=== PATIENT | female | born 1955 | race African-American/Black ===

== ENCOUNTER 2020-09-14 09:14 | Outpatient (REF) | payer OTHER, SELFPAY ==
--- NOTE | 2020-09-14 09:16 | XR_ITS ---
EXAMINATION: XR SHOULDER, RIGHT CLINICAL INFORMATION: Right shoulder pain. COMPARISON: 01/06/2020, 01/13/2019, and 10/04/2018. TECHNIQUE: Three views of the right shoulder. FINDINGS: There is no evidence of acute fracture, dislocation, or calcific tendinitis of the right shoulder. Glenohumeral joint space appears maintained. There is mild spurring about the glenohumeral joint as well some degenerative spurring with subchondral cyst formation about the right acromioclavicular joint. There are also noted to be pit erosions/subchondral cysts seen about the right humeral head. XR/XR shoulder RT min 2V IMPRESSION: Degenerative change of the right shoulder without evidence of acute fracture, dislocation, or calcific tendinitis. Stable appearance.
== END 2020-09-14 09:15 | disposition home or self-care (01) ==
LOC: HO.HOSX 09:14
PROVIDERS: PCP Family Medicine Geriatric Medicine; Referring Provider Family Medicine Geriatric Medicine; Visit Provider Orthopaedic Surgery
DX: M75.41 Impingement syndrome of right shoulder (principal); I10 Essential (primary) hypertension; E11.9 Type 2 diabetes mellitus without complications; F17.200 Nicotine dependence, unspecified, uncomplicated
CPT/HCPCS: 20610; 73030; 99212; J1040

== ENCOUNTER 2020-10-28 14:00 | Outpatient (RCR) | payer OTHER, SELFPAY | END 2020-11-21 16:30 | disposition other institution (70) | LOC: HO.PT 14:00 | PROVIDERS: PCP Internal Medicine; Visit Provider Internal Medicine | DX: M25.511 Pain in right shoulder (principal); M25.512 Pain in left shoulder | CPT/HCPCS: 97110; 97161 ==

== ENCOUNTER 2020-11-15 08:49 | Outpatient (REF) | payer OTHER, SELFPAY ==
--- NOTE | 2020-11-15 08:58 | MM_ITS ---
EXAMINATION: MM SCREENING DIGITAL BREAST TOMOSYNTHESIS, BILATERAL CLINICAL INFORMATION: Screening. Asymptomatic. The lifetime risk of breast cancer based on the Tyrer-Cuzick Model is 5%. COMPARISON: Mammography: 10/07/2019, 09/01/2018, 08/30/2017, 08/15/2016 TECHNIQUE: Digital breast tomosynthesis is performed in both the craniocaudal and mediolateral oblique views along with computer-aided detection (CAD). Synthesized 2D images are generated from the tomosynthesis. FINDINGS: There are scattered areas of fibroglandular density (ACR BI-RADS breast composition Category b). Parenchymal pattern is similar to prior exams. There is no significant mass or interval architectural abnormality or abnormal calcifications. Small asymmetric density central outer left breast on CC view and asymmetry upper outer quadrant right breast are stable. There is a chronic smooth mass central 3:00 right breast again seen. No significant changes. MM/MM tomosynthesis screening BI IMPRESSION: No significant changes from prior studies. ASSESSMENT: BI-RADS 2: Benign RECOMMENDATION: Routine annual mammography screening. This patient's information was entered into a reminder system with a target due date for their next mammogram.
== END 2020-11-15 08:50 | disposition home or self-care (01) ==
LOC: HO.MAMMO 08:49
PROVIDERS: PCP Internal Medicine; Visit Provider Internal Medicine
DX: Z12.31 Encounter for screening mammogram for malignant neoplasm of breast (principal)
CPT/HCPCS: 77063; 77067

== ENCOUNTER 2020-12-29 14:33 | Outpatient (REF) | payer OTHER, SELFPAY | END 2020-12-29 14:34 | disposition home or self-care (01) | LOC: HO.LAB 14:33 | PROVIDERS: Visit Provider Internal Medicine | DX: Z20.822 Contact with and (suspected) exposure to COVID-19 (principal) | CPT/HCPCS: 36415; C9803; U0003; U0005 ==

== ENCOUNTER 2021-02-25 07:06 | Emergency (ER) | payer OTHER, SELFPAY ==
--- NOTE | ~2021-02-25 | XR_ITS ---
EXAMINATION: XR LUMBOSACRAL SPINE CLINICAL INFORMATION: Pain after fall. COMPARISON: 06/03/15. TECHNIQUE: Three views of the lumbosacral spine. FINDINGS: Moderate degenerative changes are present at L4-5 and L5-S1 with disc space narrowing and marginal osteophytosis. There is associated facet arthropathy. There is a mild convex left lower lumbar curve unchanged from previous. Alignment is otherwise unremarkable. Mild degenerative changes and spondylosis are seen in the lower thoracic and upper lumbar spine with marginal osteophytosis. Disc spaces at those levels are reasonably well-maintained. No fracture or other acute abnormality is demonstrated. Alignment the sacroiliac joints is normal. The paravertebral soft tissues are unremarkable. XR/XR lumbar spine 2-3V IMPRESSION: Multilevel degenerative disease without significant interval change. No acute abnormality demonstrated.
[2021-02-25 07:11] VITALS: BP 145/76; PULSE 86; RESP 18; TEMP 37.3; O2SAT 98; BMI 29.8
--- NOTE | 2021-02-25 07:50 | ED.BACK ---
HPI - Back Pain/Injury General Chief Complaint: Back Pain/Injury Stated Complaint: BACK PAIN Time Seen by Provider: 02/25/21 07:34 Source: patient Mode of arrival: ambulatory Limitations: no limitations History of Present Illness HPI Narrative: 65 yo female with HTN, DORA, prior back pain just seen by doctor prescribed flexeril with little effect, HPL, GERD here with back pain for 1 month after fall c/o low back radiating up into her shoulders has not had xrays yet, denies b/b incontinence, no saddle anesthesia MD elicited complaint: back pain and back injury Pertinent past history: prior back pain Onset (ago): month(s) (1) Timing: constant Severity: moderate Similar Symptoms Previously: Yes Quality: spasming and throbbing Location: lumbar spine Radiation: neck Exacerbating factors: movement Relieving factors: none Context: fall Associated symptoms: denies other symptoms Treatments prior to arrival: other medications Work related injury: No Related Data Home Medications Medication Instructions Recorded Confirmed amlodipine 10 mg tablet 10 mg PO DAILY 10/18/20 10/18/20 aspirin 81 mg tablet,delayed 81 mg PO QAM 10/18/20 10/18/20 release baclofen 10 mg tablet 10 mg PO DAILY 10/18/20 10/18/20 citalopram 20 mg tablet 20 mg PO BEDTIME 10/18/20 10/18/20 docusate sodium 100 mg capsule 100 mg PO BID 10/18/20 10/18/20 fluticasone furoate 50 INHALATION 10/18/20 10/18/20 mcg/actuation blister powder for inhalation hydroxyzine HCl 25 mg tablet 25 mg PO TID PRN 10/18/20 10/18/20 lancets 33 gauge #100 ea 10/18/20 10/18/20 meloxicam 7.5 mg tablet 7.5 mg PO BID 10/18/20 10/18/20 multivitamin 1 tab PO QAM 10/18/20 10/18/20 omega-3 fatty acids-fish oil 340 1 cap PO BID 10/18/20 10/18/20 mg-1,000 mg capsule omeprazole 20 mg capsule,delayed 20 mg PO QAM 10/18/20 10/18/20 release paroxetine HCl 10 mg tablet 10 mg PO DAILY 10/18/20 10/18/20 rosuvastatin 20 mg tablet 20 mg PO BEDTIME 10/18/20 10/18/20 trazodone 300 mg tablet 300 mg PO BEDTIME 10/18/20 10/18/20 valsartan 320 mg tablet 320 mg PO DAILY 10/18/20 10/18/20 Previous Rx's Medication Instructions Recorded hydrocodone-acetaminophen 1 tab PO Q6H PRN #12 tab 02/25/21 lidocaine 1 patch TOPICAL DAILY PRN #10 ea 02/25/21 Allergies Allergy/AdvReac Type Severity Reaction Status Date / Time hydrochlorothiazide Allergy Unknown swelling, Verified 09/14/20 09:33 water retention penicillin V Allergy Unknown swelling Verified 09/14/20 09:33 Penicillins Allergy Unknown RASH,SWELLI Verified 09/14/20 09:33 NG Review of Systems Review of Systems: Constitutional : No Weight loss, No Fever, No Chills, ENT/Mouth : No Hearing loss, No Ear Pain, No Nasal Congestion, No Sinus Pain, No Hoarseness, No sore throat, No Rhinorrhea, No Swallowing Difficulty Cardiovascular : No Chest Pain, No SOB Respiratory : No Cough, No Dyspnea Gastrointestinal : No Nausea, No Vomiting, No Diarrhea, No abdominal Pain, No Hematochezia, No Melena Genitourinary : No Dysuria, No Urinary Frequency, No Hematuria, No Urinary Incontinence, Musculoskeletal : positive back pain Skin : No Skin Lesions, No rash Neuro : No Weakness, No Numbness, No Paresthesias, no loss of bowel or bladder incontinence, no saddle anesthesia PMFSH Past Medical History Attestation statement: The following information was validated with the patient. Medical History Asthma Hypertension Rotator cuff impingement syndrome of right shoulder Type 2 diabetes mellitus Unilateral primary osteoarthritis, left knee Surgical History History of carpal tunnel release History of hernia repair Family History Family History Mother No problems noted. Father No problems noted. Social History Social History Alcohol intake: never Smoking Status: Current every day smoker Use of substances other than those prescribed or required for medical reasons: No Advance Directives: Yes Advance Directives Information Provided: Yes Advance Directives on File: No Current occupational status: disabled Current occupation: Right Handed Physical Exam Vital Signs: Vital Signs: Last Vital Signs Temp 99.2 F 02/25/21 07:11 Pulse 86 02/25/21 07:11 Resp 18 02/25/21 07:11 BP 145/76 H 02/25/21 07:11 Pulse Ox 98 02/25/21 07:11 Body Mass Index 29.8 Appearance: Alert. Oriented X3. No acute distress. Eyes: Pupils equal, round and reactive to light. ENT: Pharynx normal. Neck: Normal inspection. Neck supple. CVS: Normal heart rate and rhythm. Pulses normal. Respiratory: No respiratory distress. Breath sounds normal. Abdomen: Soft and nontender. Back: ttp along lower lumbar spine and paraspinal muscles Skin: Skin warm and dry. Normal skin color. Normal skin turgor. Extremities: No lower extremity edema. No calf ttp Neuro: Oriented X 3. No motor deficit. No sensory deficit. SILT inner thigh, slow steady gait Course Course Course Narrative: no acute findings on lumbar film at this time, stable for DC MDM - Back Pain/Injury MDM Narrative Medical decision making narrative: 65 yo female with HTN, HPL, DORA here with lower back pain x 1 month after fall, no b/b incontinence, no saddle anesthesia, no IVDA, no AC therapy - at this time will provide PO pain medications, obtain lumbar spine film for compression fractures. Discharge Plan Discharge Clinical Impression: Strain of lumbar region Patient Disposition: Home, Self-Care Instructions: Back Pain (ED) Additional Instructions: return to ED for any worsening symptoms or concerns Prescriptions: New lidocaine 4 % adhesive patch,medicated 1 patch topical DAILY PRN (Reason: pain) Qty: 10 RF: 0 hydrocodone-acetaminophen 5-325 mg tablet 1 tab PO Q6H PRN (Reason: pain) Qty: 12 RF: 0 No Action trazodone 300 mg tablet 300 mg PO BEDTIME RF: 0 (DME) lancets 33 gauge misc See Rx Instructions ea .ROUTE .MEDSUPPLY Qty: 100 RF: 0 Fish Oil 340-1,000 mg capsule 1 cap PO BID RF: 0 rosuvastatin 20 mg tablet 20 mg PO BEDTIME RF: 0 docusate sodium 100 mg capsule 100 mg PO BID RF: 0 citalopram 20 mg tablet 20 mg PO BEDTIME RF: 0 aspirin 81 mg tablet,delayed release (DR/EC) 81 mg PO QAM RF: 0 amlodipine 10 mg tablet 10 mg PO DAILY RF: 0 hydroxyzine HCl 25 mg tablet 25 mg PO TID PRN (Reason: anxiety) RF: 0 meloxicam 7.5 mg tablet 7.5 mg PO BID RF: 0 omeprazole 20 mg capsule,delayed release(DR/EC) 20 mg PO QAM RF: 0 multivitamin Tablet 1 tab PO QAM RF: 0 baclofen 10 mg tablet 10 mg PO DAILY RF: 0 valsartan 320 mg tablet 320 mg PO DAILY RF: 0 paroxetine HCl [Paxil] 10 mg tablet 10 mg PO DAILY RF: 0 fluticasone furoate 50 mcg/actuation blister with device inhalation RF: 0 Referrals: Physician,Unknown [Primary Care Provider] - 2 days (if not better, possible physical therapy referral ) Print Language: Azerbaijani
[2021-02-25] MEDS: HYDROcodone Bit/Acetam 5/325 TABLET 1 TAB PO (08:36)
== END 2021-02-25 09:04 | disposition home or self-care (01) ==
PROVIDERS: Emergency Provider Emergency Medicine
DX: S39.012A Strain of muscle, fascia and tendon of lower back, initial encounter (principal); X58.XXXA Exposure to other specified factors, initial encounter; I10 Essential (primary) hypertension; E11.9 Type 2 diabetes mellitus without complications; K21.9 Gastro-esophageal reflux disease without esophagitis; F17.200 Nicotine dependence, unspecified, uncomplicated; Z79.82 Long term (current) use of aspirin; Z79.899 Other long term (current) drug therapy; Y93.9 Activity, unspecified; Y92.9 Unspecified place or not applicable; Y99.9 Unspecified external cause status
CPT/HCPCS: 72100; 99283; 99284

== ENCOUNTER 2021-05-29 09:44 | Outpatient (REF) | payer OTHER, SELFPAY ==
--- NOTE | ~2021-05-29 | XR_ITS ---
EXAMINATION: XR LUMBOSACRAL SPINE WITH OBLIQUES CLINICAL INFORMATION: Lower back pain. COMPARISON: Most recent lumbar spine radiographs dated 02/25/2021 TECHNIQUE: AP, lateral, coned-down, and bilateral oblique views of the lumbar spine. FINDINGS: Mild dextrocurvature of the lumbar spine, unchanged. The lumbar lordosis is maintained. No acute fracture or subluxation. No loss of vertebral body height. Multilevel loss of intervertebral disc height with endplate osteophytes. Bilateral facet arthropathy throughout the lumbar spine, most prominent at L5-S1. Overall, findings are similar when compared to the prior radiographs. XR/XR lumbar spine 4V min IMPRESSION: Prominent multilevel degenerative disc disease and bilateral facet arthropathy, similar when compared to the prior radiographs.
== END 2021-05-29 09:45 | disposition home or self-care (01) ==
LOC: HO.XRAY 09:44
PROVIDERS: PCP Internal Medicine; Visit Provider Family Medicine
DX: M54.5 Low back pain (principal)
CPT/HCPCS: 72110

== ENCOUNTER 2022-05-13 08:07 | Emergency (ER) | payer OTHER, SELFPAY ==
--- NOTE | ~2022-05-13 | XR_ITS ---
EXAMINATION: XR ANKLE, LEFT CLINICAL INFORMATION: Left ankle pain. COMPARISON: None TECHNIQUE: AP, lateral, and mortise views of the left ankle. FINDINGS: The ankle joint and mortise are intact. There is no acute fracture dislocation. The tarsal bones are normally aligned. Small plantar and retrocalcaneal spurs are seen. Mild to moderate soft tissue swelling is seen more pronounced medially. XR/XR ankle LT 2V IMPRESSION: 1. Mild to moderate soft tissue swelling, more pronounced medially without acute underlying osseous abnormality. 2. Small degenerative calcaneal spurs.
[2022-05-13 08:38] VITALS: BP 136/84; PULSE 90; RESP 18; TEMP 37.2; O2SAT 98; BMI 29.7
--- NOTE | 2022-05-13 10:27 | ED_ITS ---
HPI - Extremity Injury (Lower) General Chief Complaint: Extremity Injury, Lower Stated Complaint: L ankle pain Time Seen by Provider: 05/13/22 10:27 History of Present Illness HPI Narrative: Patient complains of left ankle pain after twisting it several days ago, she did not fall she has no other injuries she has no numbness weakness or tingling Related Data Home Medications Medication Instructions Recorded Confirmed amlodipine 10 mg tablet 10 mg PO DAILY 10/18/20 10/18/20 aspirin 81 mg tablet,delayed 81 mg PO QAM 10/18/20 10/18/20 release baclofen 10 mg tablet 10 mg PO DAILY 10/18/20 10/18/20 citalopram 20 mg tablet 20 mg PO BEDTIME 10/18/20 10/18/20 docusate sodium 100 mg capsule 100 mg PO BID 10/18/20 10/18/20 fluticasone furoate 50 inhalation 10/18/20 10/18/20 mcg/actuation blister powder for inhalation hydroxyzine HCl 25 mg tablet 25 mg PO TID PRN anxiety 10/18/20 10/18/20 lancets 33 gauge #100 ea 10/18/20 10/18/20 meloxicam 7.5 mg tablet 7.5 mg PO BID 10/18/20 10/18/20 multivitamin 1 tab PO QAM 10/18/20 10/18/20 omega-3 fatty acids-fish oil 340 1 cap PO BID 10/18/20 10/18/20 mg-1,000 mg capsule omeprazole 20 mg capsule,delayed 20 mg PO QAM 10/18/20 10/18/20 release paroxetine HCl 10 mg tablet (Paxil) 10 mg PO DAILY 10/18/20 10/18/20 rosuvastatin 20 mg tablet 20 mg PO BEDTIME 10/18/20 10/18/20 trazodone 300 mg tablet 300 mg PO BEDTIME 10/18/20 10/18/20 valsartan 320 mg tablet 320 mg PO DAILY 10/18/20 10/18/20 Previous Rx's Medication Instructions Recorded hydrocodone 5 mg-acetaminophen 325 1 tab PO Q6H PRN pain #12 tabs 02/25/21 mg tablet lidocaine 4 % topical patch 1 patch topical DAILY PRN pain #10 02/25/21 ea cane #1 ea 07/03/22 Allergies Allergy/AdvReac Type Severity Reaction Status Date / Time hydrochlorothiazide Allergy Unknown swelling, Verified 09/14/20 09:33 water retention penicillin V Allergy Unknown swelling Verified 09/14/20 09:33 Penicillins Allergy Unknown RASH,SWELLI Verified 09/14/20 09:33 NG Review of Systems Review of Systems: Positive for left ankle pain and swelling Negatives are no head injury no neck pain no back pain no numbness weakness or tingling no other extremity pains no lacerations Yes all other systems are reviewed and are negative FORMERLY [facility], [facility]1983 Past Medical History Source: nursing notes reviewed Medical History Asthma Hypertension Rotator cuff impingement syndrome of right shoulder Type 2 diabetes mellitus Unilateral primary osteoarthritis, left knee Surgical History History of carpal tunnel release History of hernia repair Family History Family History Mother No problems noted. Father No problems noted. Social History Social History Alcohol intake: never Advance Directives: No Advance Directives Information Provided: No Current occupational status: disabled Current occupation: Right Handed Physical Exam Vital Signs: Vital Signs: Last Vital Signs Temp 98.9 F 05/13/22 08:38 Pulse 90 05/13/22 08:38 Resp 18 05/13/22 08:38 BP 136/84 05/13/22 08:38 Pulse Ox 98 05/13/22 08:38 O2 Del Method 05/13/22 08:38 BMI result Body Mass Index 29.7 General appearance is no acute distress Head is normocephalic atraumatic Neck is supple nontender Respiratory no distress Extremities full range of motion x4 including left ankle which had medial swelling and tenderness, patient is able to walk with a limp, there is no redness no warmth, skin is intact and normal, neurovascular intact Course Course Course Narrative: X-ray was negative, no broken bone and patient is diagnosed with left ankle sprain, she can bear weight but with a limp Discharge Plan Discharge Clinical Impression: Left ankle sprain Patient Disposition: Home, Self-Care Additional Instructions: X-ray did not show any broken bone, so you have an ankle sprain Usually this improves in several weeks without much treatment but if needed go to orthopedist for follow-up Return any time if worse You can use Tylenol as needed for discomfort, elevate the leg apply ice Prescriptions: New (DME) cane Device See Rx Instructions .Route Qty: 1 0RF Rx Instructions: As directed No Action lidocaine 4 % adhesive patch,medicated 1 patch topical DAILY PRN (Reason: pain) Qty: 10 0RF Rx Instructions: may leave on for up to 12 hrs hydrocodone-acetaminophen 5-325 mg tablet 1 tab PO Q6H PRN (Reason: pain) Qty: 12 0RF trazodone 300 mg tablet 300 mg PO BEDTIME (DME) lancets 33 gauge misc See Rx Instructions .ROUTE .MEDSUPPLY Qty: 100 Rx Instructions: As directed Fish Oil 340-1,000 mg capsule 1 cap PO BID rosuvastatin 20 mg tablet 20 mg PO BEDTIME docusate sodium 100 mg capsule 100 mg PO BID citalopram 20 mg tablet 20 mg PO BEDTIME aspirin 81 mg tablet,delayed release (DR/EC) 81 mg PO QAM amlodipine 10 mg tablet 10 mg PO DAILY hydroxyzine HCl 25 mg tablet 25 mg PO TID PRN (Reason: anxiety) meloxicam 7.5 mg tablet 7.5 mg PO BID omeprazole 20 mg capsule,delayed release(DR/EC) 20 mg PO QAM multivitamin Tablet 1 tab PO QAM baclofen 10 mg tablet 10 mg PO DAILY valsartan 320 mg tablet 320 mg PO DAILY paroxetine HCl [Paxil] 10 mg tablet 10 mg PO DAILY fluticasone furoate 50 mcg/actuation blister with device inhalation Referrals: Shaquille Marrero MD [Physician] - (Left ankle sprain)
== END 2022-05-13 11:01 | disposition home or self-care (01) ==
PROVIDERS: Emergency Provider Emergency Medicine Emergency Medical Services; PCP Internal Medicine
DX: S93.402A Sprain of unspecified ligament of left ankle, initial encounter (principal); X50.1XXA Overexertion from prolonged static or awkward postures, initial encounter; Y93.9 Activity, unspecified; Y92.9 Unspecified place or not applicable; Y99.9 Unspecified external cause status; Z79.899 Other long term (current) drug therapy
CPT/HCPCS: 73600; 99283

== ENCOUNTER 2022-06-14 10:13 | Outpatient (REF) | payer OTHER, SELFPAY ==
--- NOTE | ~2022-06-14 | XR_ITS ---
EXAMINATION: XR KNEE, RIGHT XR KNEE, LEFT CLINICAL INFORMATION: Bilateral knee pain. COMPARISON: Standing bilateral knees and left knee radiographs 02/17/2019. TECHNIQUE: Each knee is imaged in 3 views: Standing AP, lateral, and axial patella. There are total of 6 views. FINDINGS: Right: No fracture or dislocation. There is moderate to prominent tricompartment osteoarthritis, greatest medial knee joint compartment with joint narrowing and marginal osteophytes and borderline genu varus. No erosive changes or visible chondrocalcinosis. Lateral view shows small suprapatellar effusion. Hoffa's fat pad appears normal. There is spurring at the quadriceps insertion patella. No definite lateralization or tilting. Left: Prominent tricompartment osteoarthritis, greatest medial knee joint compartment with severe joint narrowing, subchondral sclerosis, and marginal osteophytes. Secondary genu varus. No visible erosive change or chondrocalcinosis. Trace thickening suprapatellar bursa. Hoffa's fat pad appears normal. There is spurring at the quadriceps insertion patella and spurring at the patellar tendon insertion proximal anterior tibia. Deep infrapatellar recess is preserved. There is borderline lateralization patella. No tilting. XR/XR knee RT 3V IMPRESSION: -Prominent tricompartment osteoarthritis, greater on left. Secondary genu varus. -Spurring at quadriceps insertion bilateral patella. Mild lateralization left patella. -Small right effusion, trace left effusion.
--- NOTE | ~2022-06-14 | XR_ITS ---
EXAMINATION: XR KNEE, RIGHT XR KNEE, LEFT CLINICAL INFORMATION: Bilateral knee pain. COMPARISON: Standing bilateral knees and left knee radiographs 02/17/2019. TECHNIQUE: Each knee is imaged in 3 views: Standing AP, lateral, and axial patella. There are total of 6 views. FINDINGS: Right: No fracture or dislocation. There is moderate to prominent tricompartment osteoarthritis, greatest medial knee joint compartment with joint narrowing and marginal osteophytes and borderline genu varus. No erosive changes or visible chondrocalcinosis. Lateral view shows small suprapatellar effusion. Hoffa's fat pad appears normal. There is spurring at the quadriceps insertion patella. No definite lateralization or tilting. Left: Prominent tricompartment osteoarthritis, greatest medial knee joint compartment with severe joint narrowing, subchondral sclerosis, and marginal osteophytes. Secondary genu varus. No visible erosive change or chondrocalcinosis. Trace thickening suprapatellar bursa. Hoffa's fat pad appears normal. There is spurring at the quadriceps insertion patella and spurring at the patellar tendon insertion proximal anterior tibia. Deep infrapatellar recess is preserved. There is borderline lateralization patella. No tilting. XR/XR knee LT 3V IMPRESSION: -Prominent tricompartment osteoarthritis, greater on left. Secondary genu varus. -Spurring at quadriceps insertion bilateral patella. Mild lateralization left patella. -Small right effusion, trace left effusion.
== END 2022-06-14 10:14 | disposition home or self-care (01) ==
LOC: HO.XRAY 10:13
PROVIDERS: Absent Provider Internal Medicine; PCP Internal Medicine; Visit Provider Internal Medicine
DX: M25.562 Pain in left knee (principal); M25.561 Pain in right knee
CPT/HCPCS: 73562

== ENCOUNTER 2022-08-25 05:40 | Emergency (ER) | payer OTHER, SELFPAY ==
--- NOTE | ~2022-08-25 | US_ITS ---
EXAMINATION: BILATERAL LOWER EXTREMITY VENOUS ULTRASOUND CLINICAL INFORMATION: Pain. Rule out DVT. COMPARISON: Left lower extremity venous Doppler ultrasound dated 06/24/2018. Bilateral lower extremity venous Doppler ultrasound dated 04/30/2012. TECHNIQUE: Doppler spectral analysis and color flow Doppler imaging was performed of the lower extremities. Compression and augmentation maneuvers were performed. FINDINGS: The right and left common femoral vein, greater saphenous vein takeoff, femoral vein, and popliteal vein are normally compressible with normal augmentation responses and phasic changes seen with Doppler imaging. The midcalf peroneal and posterior tibial veins are patent as well. In the right popliteal fossa, there is a 5.5 x 1.6 x 3.1 cm fluid collection, consistent with a popliteal cyst, previously measuring 4 x 1.4 x 1.8 cm (04/30/2012). No left popliteal cyst is seen. US/US venous duplex LE BI IMPRESSION: 1. No evidence of deep venous thrombosis in the right or left lower extremity. 2. Right popliteal cyst, slightly larger compared to 2012.
[2022-08-25 05:43] VITALS: BP 138/79; PULSE 81; RESP 19; TEMP 37.2; O2SAT 100; BMI 29.2
[2022-08-25 06:15] LABS: MANUAL DIFF FLAG NO
[2022-08-25 06:16] LABS: Basophils Absolute Auto 0.1 X10*3/uL (0.0-0.2); Basophils Percent Auto 0.5 % (0-2); Eosinophils Absolute Auto 0.2 X10*3/uL (0.0-0.4); Eosinophils Percent Auto 2.5 % (0-4); Hematocrit 37.3 % (37.0-47.0); Hemoglobin 12.1 g/dl (12.0-16.0); Imm Gran Abs Auto 0.02 X10*3/uL (0.00-0.03); Imm Gran Pct Auto 0.2 % (0.0-0.4); Lymphocytes Absolute Auto 2.5 X10*3/uL (1.2-4.9); Lymphocytes Percent Auto 27.2 % (20-40); Mean Corpuscular HGB Conc 32.4 g/dl (31.0-35.0); Mean Corpuscular Hemoglobin 30.2 pg (27.0-33.0); Monocytes Absolute Auto 0.8 X10*3/uL (0.1-1.2); Monocytes Percent Auto 9.1 % (2-11); Neutrophils Absolute Auto 5.6 x10*3/uL (2.0-8.3); Neutrophils Percent Auto 60.5 % (45-73); Platelet Count 353 X10*3/uL (160-400); Red Blood Count 4.01 X10*6/uL (4.20-5.50); Red Cell Distribution Width 14.6 % (11.0-16.0); White Blood Count 9.2 X10*3/uL (4.8-10.8)
[2022-08-25 06:32] VITALS: BP 144/71; PULSE 60; RESP 18; TEMP 36.9; O2SAT 98
[2022-08-25 06:46] LABS: Anion Gap 14 (12-20); Blood Urea Nitrogen 15 mg/dL (9-16); Calcium 9.9 mg/dL (8.4-10.2); Carbon Dioxide 29 mmol/L (22-29); Chloride 104 mmol/L (96-108); Creatinine Clr Calc Pharmacy 79.1; Estimated Glomerular Filt Rate > 60; Glucose Random 92 mg/dL (60-115); Sodium 143 mmol/L (135-145)
--- OUTSIDE RECORDS SUMMARY | 2022-08-25 06:53 | XMS_ITS ---
:[address] [facility] Address [address] [place] [address] Care Team Providers Name Role Phone Prosper Dugan Unavailable Unavailable PROBLEMS Type Condition ICD9-CM Code [id number] Code Onset Condition SNO MED Code Dates Status Problem Screening for V76.51 Active 443262 004 colorectal cancer Problem History of V12.72 Active [id number] adenomatous polyp of colon Problem GERD 530.81 Active [id number] (gastroesophagea l reflux disease) Problem Encounter for V58.69 Active 150361 002 long-term (current) use of other medications ALLERGIES No Known Allergies ENCOUNTERS Encounter Location Date Diagnosis [place] [address] [facility] [address] [place] [address] [facility] Outpatient [address] [place] [address] 16 Apr, 2014 [place] [id number] [place] [address], [facility] [place] [address] [place] [address], [facility] [address] [place] [address] [place] [address] [place] [address] ([facility] [address] [place] reflux disease) 530.81 ; [id number] History of adeno matous polyp of colon V 12.72 ; Screening for co lorectal cancer V76.51 an d Encounter for lo ng-term (current) use of other medications V58. [address] [place] [address], [facility] [address] [place] [address] [place] [address] [facility] [address] [place] [address] [facility] Outpatient [address], [place] [id number] [facility] ER [address] Apr, [place] [id number] IMMUNIZATIONS No Known Immunizations SOCIAL HISTORY Never Assessed REASON FOR REFERRAL FUNCTIONAL STATUS PLAN OF CARE Activity Details Future/Pending Procedure COLONOSCOPY [id number] VITAL SIGNS Weight 204 lbs 2014-02-23 Height 62 in 2014-02-23 BMI 37.31 kg/m2 2014-02-23 Heart Rate 84 /min 2014-02-23 Blood pressure systolic 138 mm Hg 2014-02-23 Blood pressure diastolic 82 mm Hg 2014-02-23 MEDICATIONS Medication Instructions Dosage Frequency Start End Date Duration Stat Tylenol Active Arthritis Pain 650mg Naproxen 500mg Active Aspir-81 81mg Active Crestor 20mg Active Fortamet 500mg Active LORazepam 1mg Active Fish Oil Active 1000mg Atrovent HFA Active 17mcg Colyte with Orally As As directed Feb, 1 day(s) Activ e Flavor Packs directed 2013 227.1 GM Loratadine Active 10mg Omeprazole Active 20mg traZODone HCl Active 50mg Advair Diskus Active 500mcg Calcium 600 + Active Minerals 600mg amLODIPine Active Besylate 10mg Diovan 320mg Active traMADol HCl Active 50mg PROCEDURES No Known procedures RESULTS Name Result Date Reference Range GLUCOSE,WHOLE BLOOD 2014-04-26 GLUCOSE,WHOLE BLOOD 114 60-115 REASON FOR VISIT No show, no call , Patient presents today for a screening colon, hx of polyp, screening, Procedure on 04/26, sign off on colyte prep, Colon Screening, No Show, Colon Screening, Colon Screening Insurance Providers [facility] Health Member Patient Patient Patient Patient Patient Subscriber Subscriber Subscriber Group Insurance Plan Plan Plan Plan ID Relationship Address Phone Name Date of ID Name Date of No Type Insurance Insurance Insurance Coverage to Subscriber Address Phone Name Dates [phone] KWAME self SHARA [id number] TOTAL [id number] TOTAL JONNY CARE/ Robbie CARE/ 21-64 [place] [id number] 21-64 Yrs MEDICARE [phone] MEDICARE self SHARA [id number] [place] [address] [place] [address] [employer] [phone] [employer] self SHARA 1 [id number] [facility] [address] [facility] [place] [facility] [address] MEDICAID [phone] MEDICAID self SHARA [id number] [place] [id number] [facility] [id number]
[2022-08-25 06:57] VITALS: BP 141/71; PULSE 59; RESP 12; TEMP 36.8; O2SAT 97
--- NOTE | 2022-08-25 07:50 | ED.EXTPRO ---
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 Pain started about 2 weeks ago started in bilateral knees and radiates down to both legs, dull aching pain 10/10 constant, increased with movement with no relieving factors. No other association of fever or chills or CP or SOB. No trauma or injury to lower extremities. Patient is ambulatory but ambulation makes the pain worse. No recent travel, no lower extremity swelling, no history of DVT. Related Data Home Medications Medication Instructions Recorded Confirmed amlodipine 10 mg tablet 10 mg PO DAILY 10/18/20 10/18/20 aspirin 81 mg tablet,delayed 81 mg PO QAM 10/18/20 10/18/20 release baclofen 10 mg tablet 10 mg PO DAILY 10/18/20 10/18/20 citalopram 20 mg tablet 20 mg PO BEDTIME 10/18/20 10/18/20 docusate sodium 100 mg capsule 100 mg PO BID 10/18/20 10/18/20 fluticasone furoate 50 inhalation 10/18/20 10/18/20 mcg/actuation blister powder for inhalation hydroxyzine HCl 25 mg tablet 25 mg PO TID PRN anxiety 10/18/20 10/18/20 lancets 33 gauge #100 ea 10/18/20 10/18/20 meloxicam 7.5 mg tablet 7.5 mg PO BID 10/18/20 10/18/20 multivitamin 1 tab PO QAM 10/18/20 10/18/20 omega-3 fatty acids-fish oil 340 1 cap PO BID 10/18/20 10/18/20 mg-1,000 mg capsule omeprazole 20 mg capsule,delayed 20 mg PO QAM 10/18/20 10/18/20 release paroxetine HCl 10 mg tablet (Paxil) 10 mg PO DAILY 10/18/20 10/18/20 rosuvastatin 20 mg tablet 20 mg PO BEDTIME 10/18/20 10/18/20 trazodone 300 mg tablet 300 mg PO BEDTIME 10/18/20 10/18/20 valsartan 320 mg tablet 320 mg PO DAILY 10/18/20 10/18/20 Previous Rx's Medication Instructions Recorded hydrocodone 5 mg-acetaminophen 325 1 tab PO Q6H PRN pain #12 tabs 02/25/21 mg tablet lidocaine 4 % topical patch 1 patch topical DAILY PRN pain #10 02/25/21 ea cane #1 ea 05/13/22 ibuprofen 400 mg tablet 400 mg PO Q8H PRN pain #30 tabs 08/25/22 Allergies Allergy/AdvReac Type Severity Reaction Status Date / Time penicillin V Allergy Unknown swelling Verified 08/25/22 05:50 Penicillins Allergy Unknown RASH,SWELLI Verified 08/25/22 05:50 NG Review of Systems Review of Systems: All other systems are reviewed and are negative Constitutional: Reports as per HPI and Reports no additional constitutional complaints Eyes: Reports as per HPI and Reports no additional eye complaints Reports system reviewed and no additional complaints, except as documented Cardiovascular: Reports as per HPI and Reports no additional cardiovascular complaints Respiratory: Reports as per HPI and Reports no additional respiratory complaints Gastrointestinal: Reports as per HPI and Reports no additional gastrointestinal complaints Genitourinary: Reports no additional female genitourinary complaints Musculoskeletal: Reports no additional musculoskeletal complaints Skin/Breast: Reports system reviewed and no additional complaints, except as docu Psychiatric: Reports no additional psychiatric complaints Endocrine: Reports no additional endocrine complaints Hematologic/Lymphatic: Reports no additional hematologic/lymphatic complaints Allergic/Immunologic: Reports no additional allergic/immunologic complaints Reports system reviewed and no additional complaints, except as documented and Reports Abnormal speech present [facility] Past Medical History Medical History Asthma Hypertension Rotator cuff impingement syndrome of right shoulder Type 2 diabetes mellitus Unilateral primary osteoarthritis, left knee Surgical History History of carpal tunnel release History of hernia repair Family History Family History Mother No problems noted. Father No problems noted. Social History Social History Alcohol intake: never Advance Directives: No Advance Directives Information Provided: Yes Current occupational status: disabled Current occupation: Right Handed Physical Exam Vital Signs: Vital Signs: Last Vital Signs Temp 98.2 F 08/25/22 06:57 Pulse 59 08/25/22 06:57 Resp 12 08/25/22 06:57 BP 141/71 H 08/25/22 06:57 Pulse Ox 97 08/25/22 06:57 O2 Del Method 08/25/22 06:57 BMI result Body Mass Index 29.2 Vital signs have been reviewed as appeared to be correct. Blood pressure normal. Heart rate normal. Respiration rate normal. Temperature normal. Oxygen saturation normal. Appearance: Alert. Oriented X3. No acute distress. Head: Normal external exam. Normocephalic. Atraumatic. No Flores signs noted. No raccoon eyes noted Eyes: PERRLA. EOMI. Conjunctiva and sclera normal. Eyelids normal. ENT: TM's Normal. Pharynx normal. Uvula midline. Moist mucous membranes. No trismus noted. No drooling noted. No muffled voice noted. Neck: Normal inspection. Neck supple. FROM. No adenopathy. Thyroid Normal. No meningeal signs. No neck mass noted. CVS: Normal heart rate and rhythm. Heart sound normal. No murmurs noted. Pulses normal throughout. Respiratory: No respiratory distress. Painless inspiration. Breath sounds normal. No wheezes/rales/rhonchi noted. Chest nontender. No accessory muscle usage noted or decreased air movement noted. Abdomen: Soft and nontender. Bowel sounds normal in all 4 quadrants. No distention noted. No organomegaly noted. No visible injury noted. Back: No CVA tenderness. Full range of motion noted. Skin: Skin warm and dry. Normal skin color. Normal skin turgor. No rashes/lesions/lacerations noted. Extremities: No lower extremity edema. Extremities exhibit normal range of motion. Extremities nontender. Neuro: Oriented X 3. Cranial nerve exam: II-XII are grossly intact No motor deficit. No sensory deficit. Reflexes normal. Course Course Course Narrative: 66-year-old female with chronic bilateral lower extremity/knee pain. Unremarkable labs and ultrasound of lower extremities for DVT. 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 MDM - Extremity (Nontraumatic) Lab Data Attestation: I reviewed the patient's lab results. Result diagrams: 08/25/22 06:11 08/25/22 06:11 Labs: Lab Results 08/25/22 08/25/22 Range/Units 06:11 06:11 WBC 9.2 (4.8-10.8) X10*3/uL RBC 4.01 L (4.20-5.50) X10*6/uL Hgb 12.1 (12.0-16.0) g/dl Hct 37.3 (37.0-47.0) % MCV 93.0 (80.0-98.0) fL MCH 30.2 (27.0-33.0) pg MCHC 32.4 (31.0-35.0) g/dl RDW 14.6 (11.0-16.0) % Plt Count 353 (160-400) X10*3/uL MPV 10.0 (9.4-12.3) fL Immature Gran % (Auto) 0.2 (0.0-0.4) % Neut % (Auto) 60.5 (45-73) % Lymph % (Auto) 27.2 (20-40) % Harlan % (Auto) 9.1 (2-11) % Eos % (Auto) 2.5 (0-4) % Baso % (Auto) 0.5 (0-2) % Lymph # (Auto) 2.5 (1.2-4.9) X10*3/uL Harlan # (Auto) 0.8 (0.1-1.2) X10*3/uL Eos # (Auto) 0.2 (0.0-0.4) X10*3/uL Baso # (Auto) 0.1 (0.0-0.2) X10*3/uL Abs Immat Gran (auto) 0.02 (0.00-0.03) X10*3/uL Absolute Neuts (auto) 5.6 (2.0-8.3) x10*3/uL Absolute Nucleated RBC 0.000 (0.0-0.012) X10*3/uL Nucleated RBC % (auto) 0.0 (0.0-0.2) /100WBC Sodium 143 (135-145) mmol/L Potassium 4.0 (3.3-5.1) mmol/L Chloride 104 (96-108) mmol/L Carbon Dioxide 29 (22-29) mmol/L Anion Gap 14 (12-20) BUN 15 (9-16) mg/dL Creatinine 0.74 (0.5-1.4) mg/dL Estim Creat Clear Calc 79.1 Estimated GFR > 60 Random Glucose 92 (60-115) mg/dL Calcium 9.9 (8.4-10.2) mg/dL Imaging Data Bilateral lower extremities ultrasound: Attestation: I personally reviewed and interpreted this imaging study as follows: Radiologist's impression: 1. No evidence of deep venous thrombosis in the right or left lower extremity. 2. Right popliteal cyst, slightly larger compared to 2012. Discharge Plan Discharge Clinical Impression: Arthralgia of both knees, Arthralgia of both lower legs Patient Disposition: Home, Self-Care Instructions: Arthralgia (ED) Prescriptions: New ibuprofen 400 mg tablet 400 mg PO Q8H PRN (Reason: pain) Qty: 30 0RF No Action lidocaine 4 % adhesive patch,medicated 1 patch topical DAILY PRN (Reason: pain) Qty: 10 0RF Rx Instructions: may leave on for up to 12 hrs hydrocodone-acetaminophen 5-325 mg tablet 1 tab PO Q6H PRN (Reason: pain) Qty: 12 0RF (DME) cane Device See Rx Instructions .Route Qty: 1 0RF Rx Instructions: As directed trazodone 300 mg tablet 300 mg PO BEDTIME (DME) lancets 33 gauge misc See Rx Instructions .ROUTE .MEDSUPPLY Qty: 100 Rx Instructions: As directed Fish Oil 340-1,000 mg capsule 1 cap PO BID rosuvastatin 20 mg tablet 20 mg PO BEDTIME docusate sodium 100 mg capsule 100 mg PO BID citalopram 20 mg tablet 20 mg PO BEDTIME aspirin 81 mg tablet,delayed release (DR/EC) 81 mg PO QAM amlodipine 10 mg tablet 10 mg PO DAILY hydroxyzine HCl 25 mg tablet 25 mg PO TID PRN (Reason: anxiety) meloxicam 7.5 mg tablet 7.5 mg PO BID omeprazole 20 mg capsule,delayed release(DR/EC) 20 mg PO QAM multivitamin Tablet 1 tab PO QAM baclofen 10 mg tablet 10 mg PO DAILY valsartan 320 mg tablet 320 mg PO DAILY paroxetine HCl [Paxil] 10 mg tablet 10 mg PO DAILY fluticasone furoate 50 mcg/actuation blister with device inhalation Referrals: [place], [facility] [Primary Care Provider] -
[2022-08-25] MEDS: oxyCODONE HCl Immed Release 5 MG TABLET PO (08:00)
[2022-08-25] MEDS: Ibuprofen 600 MG TABLET PO (08:00)
== END 2022-08-25 10:16 | disposition home or self-care (01) ==
PROVIDERS: Emergency Provider Emergency Medicine
DX: M79.662 Pain in left lower leg (principal); M79.661 Pain in right lower leg; M25.562 Pain in left knee; M25.561 Pain in right knee; I10 Essential (primary) hypertension; E11.9 Type 2 diabetes mellitus without complications; Z79.82 Long term (current) use of aspirin; Z79.02 Long term (current) use of antithrombotics/antiplatelets; Z79.899 Other long term (current) drug therapy
CPT/HCPCS: 36415; 80048; 85025; 93970; 99284

== ENCOUNTER 2022-12-13 09:18 | Outpatient (REF) | payer OTHER, SELFPAY ==
--- NOTE | ~2022-12-13 | XR_ITS ---
EXAMINATION: XR KNEE, BILATERAL CLINICAL INFORMATION: Osteoarthritis worsening pain. COMPARISON: None x-rays of the knees most recent June 2022. TECHNIQUE: 3 views of each knee. FINDINGS: RIGHT KNEE: Mild genu varus. Medial Compartment: there is prominent joint space narrowing with marginal osteophytes AND probably subchondral cystic change ON the femoral side. Findings indicative of moderate osteoarthritis unchanged. Lateral Compartment: Small marginal osteophytes without joint space narrowing indicative of at least mild osteoarthritis. Patellofemoral Compartment: Marginal osteophytes without joint space narrowing indicative of at least mild osteoarthritis. No joint effusion. Arterial calcification incidentally noted. LEFT KNEE: Moderate genu varus. Medial Compartment: Severe joint space narrowing with marginal osteophytes. Unchanged compared to prior. Findings indicative of severe osteoarthritis. Lateral Compartment: Slight widening of the compartment, likely related to the varus deformity. Marginal osteophytes indicative of at least mild osteoarthritis unchanged. Patellofemoral Compartment: Marginal osteophytes with at least some joint space narrowing indicative of [id number] osteoarthritis unchanged. No joint effusion. Arterial calcification incidentally noted. XR/XR knee RT 3V IMPRESSION: RIGHT KNEE: Osteoarthritis unchanged with degenerative changes most prominent and moderate in the medial compartment. LEFT KNEE: Osteoarthritis unchanged with degenerative changes most prominent and severe in the medial compartment.
--- NOTE | ~2022-12-13 | XR_ITS ---
EXAMINATION: XR KNEE, BILATERAL CLINICAL INFORMATION: Osteoarthritis worsening pain. COMPARISON: None x-rays of the knees most recent June 2022. TECHNIQUE: 3 views of each knee. FINDINGS: RIGHT KNEE: Mild genu varus. Medial Compartment: there is prominent joint space narrowing with marginal osteophytes AND probably subchondral cystic change ON the femoral side. Findings indicative of moderate osteoarthritis unchanged. Lateral Compartment: Small marginal osteophytes without joint space narrowing indicative of at least mild osteoarthritis. Patellofemoral Compartment: Marginal osteophytes without joint space narrowing indicative of at least mild osteoarthritis. No joint effusion. Arterial calcification incidentally noted. LEFT KNEE: Moderate genu varus. Medial Compartment: Severe joint space narrowing with marginal osteophytes. Unchanged compared to prior. Findings indicative of severe osteoarthritis. Lateral Compartment: Slight widening of the compartment, likely related to the varus deformity. Marginal osteophytes indicative of at least mild osteoarthritis unchanged. Patellofemoral Compartment: Marginal osteophytes with at least some joint space narrowing indicative of [id number] osteoarthritis unchanged. No joint effusion. Arterial calcification incidentally noted. XR/XR knee LT 3V IMPRESSION: RIGHT KNEE: Osteoarthritis unchanged with degenerative changes most prominent and moderate in the medial compartment. LEFT KNEE: Osteoarthritis unchanged with degenerative changes most prominent and severe in the medial compartment.
== END 2022-12-13 09:19 | disposition home or self-care (01) ==
LOC: HO.XRAY 09:18
PROVIDERS: PCP Internal Medicine; Visit Provider Family Medicine
DX: M17.0 Bilateral primary osteoarthritis of knee (principal)
CPT/HCPCS: 73562

== ENCOUNTER 2023-01-05 08:04 | Emergency (ER) | payer OTHER, SELFPAY ==
[2023-01-05 08:13] VITALS: BP 144/80; PULSE 90; RESP 16; TEMP 36.2; O2SAT 99; BMI 29.1
--- NOTE | 2023-01-05 08:38 | ED_ITS ---
HPI - Extremity Problem General Chief complaint: Extremity Problem Stated complaint: Bilateral knee pain Time Seen by Provider: 01/05/23 08:17 Source: patient Mode of arrival: ambulatory History of Present Illness HPI Narrative: 67-year-old female with a past medical history of asthma, HTN, diabetes, osteoarthritis, presenting to the ED complaining of acute on chronic bilateral knee pain x months. Admits has been seen in our ED for similar symptoms, reports symptoms unchanged however ran out of previous prescriptions. Denies following up with PCP /rheumatology or orthopedics. Denies known injury/ trauma or fall, fever, chills, numbness/ tingling, calf pain/swelling, recent travel, history of clots MD Complaint: extremity pain Onset (ago): month(s) Related Data Home Medications Medication Instructions Recorded Confirmed amlodipine 10 mg tablet 10 mg PO DAILY 10/18/20 10/18/20 aspirin 81 mg tablet,delayed 81 mg PO QAM 10/18/20 10/18/20 release baclofen 10 mg tablet 10 mg PO DAILY 10/18/20 10/18/20 citalopram 20 mg tablet 20 mg PO BEDTIME 10/18/20 10/18/20 docusate sodium 100 mg capsule 100 mg PO BID 10/18/20 10/18/20 fluticasone furoate 50 inhalation 10/18/20 10/18/20 mcg/actuation blister powder for inhalation hydroxyzine HCl 25 mg tablet 25 mg PO TID PRN anxiety 10/18/20 10/18/20 lancets 33 gauge #100 ea 10/18/20 10/18/20 meloxicam 7.5 mg tablet 7.5 mg PO BID 10/18/20 10/18/20 multivitamin 1 tab PO QAM 10/18/20 10/18/20 omega-3 fatty acids-fish oil 340 1 cap PO BID 10/18/20 10/18/20 mg-1,000 mg capsule omeprazole 20 mg capsule,delayed 20 mg PO QAM 10/18/20 10/18/20 release paroxetine HCl 10 mg tablet (Paxil) 10 mg PO DAILY 10/18/20 10/18/20 rosuvastatin 20 mg tablet 20 mg PO BEDTIME 10/18/20 10/18/20 trazodone 300 mg tablet 300 mg PO BEDTIME 10/18/20 10/18/20 valsartan 320 mg tablet 320 mg PO DAILY 10/18/20 10/18/20 Previous Rx's Medication Instructions Recorded hydrocodone 5 mg-acetaminophen 325 1 tab PO Q6H PRN pain #12 tabs 02/25/21 mg tablet lidocaine 4 % topical patch 1 patch topical DAILY PRN pain #10 02/25/21 ea cane #1 ea 05/13/22 ibuprofen 400 mg tablet 400 mg PO Q8H PRN pain #30 tabs 08/25/22 acetaminophen 500 mg tablet 500 mg PO Q6H PRN fever or pain 01/05/23 (Tylenol Extra Strength) #14 tabs diclofenac sodium 1 % topical gel 4 g topical QID #100 grams 01/05/23 (Arthritis Pain (diclofenac)) naproxen 500 mg tablet 500 mg PO BID PRN pain 10 days #20 01/05/23 tabs Allergies Allergy/AdvReac Type Severity Reaction Status Date / Time penicillin V Allergy Unknown swelling Verified 08/25/22 05:50 Penicillins Allergy Unknown RASH,SWELLI Verified 08/25/22 05:50 NG Review of Systems Review of Systems: Constitutional: No Fever, No Chills ENT/Mouth: No Ear Pain, No Nasal Congestion, No sore throat, No Rhinorrhea, No Swallowing Difficulty Cardiovascular: No Chest Pain, No SOB Respiratory: No Cough, No Sputum, No Wheezing Gastrointestinal: No Nausea, No Vomiting, No Diarrhea, No Constipation, No Abdominal pain Genitourinary: No Dysuria, No Urinary Frequency, No Hematuria Musculoskeletal: + joint pain, No Myalgias, + Joint Swelling Skin: No Skin Lesions, No rash Neuro: No Weakness, No Numbness, No Paresthesias Yes all other systems are reviewed and are negative Constitutional: Constitutional: Reports as per [facility] Past Medical History Attestation statement: The following information was validated with the patient. Medical History Asthma Hypertension Rotator cuff impingement syndrome of right shoulder Type 2 diabetes mellitus Unilateral primary osteoarthritis, left knee Surgical History History of carpal tunnel release History of hernia repair Family History Family History Mother No problems noted. Father No problems noted. Social History Social History Alcohol intake: never Advance Directives: No Advance Directives Information Provided: Yes Current occupational status: disabled Current occupation: Right Handed Physical Exam Vital Signs: Vital Signs: Last Vital Signs Temp 97.1 F 01/05/23 08:13 Pulse 90 01/05/23 08:13 Resp 16 01/05/23 08:13 BP 144/80 H 01/05/23 08:13 Pulse Ox 99 01/05/23 08:13 O2 Del Method 01/05/23 08:13 BMI result Body Mass Index 29.1 Const: General: cooperative, healthy appearing and no acute distress Orientation/consciousness: patient oriented x3 Limitations: no limitations HEENT: Head: Yes normal to inspection and Yes atraumatic Ears: hearing grossly normal bilaterally General nose exam: Normal external nose present Face and sinus: Yes normal facial exam Eyes: General: appearance normal, both eyes and all related structures EOM: EOMs intact bilaterally Neck: Neck: Yes normal visual inspection and Yes no meningeal signs Resp: Effort & Inspection: normal respiratory effort and no respiratory distress Cardio: Rate: regular rate Peripheral pulses: posterior tibial pulses present Skin: Rashes: no rashes Wounds: no wounds Neuro: General: patient oriented x3, tone normal and no meningeal signs Gait exam (Neuro): Normal gait present Extrem: Other: mild bilateral knee effusions. No erythema/ warmth. FROM intact. Mildly tender to palpation. Neurovascularly intact distally. Ambulating with steady gait. No pedal edema/calf tenderness General: Yes normal to inspection Medications Administered Discontinued Medications Generic Name Dose Route Start Last Admin Trade Name Freq PRN Reason Stop Dose Admin Ketorolac Tromethamine 30 mg 01/05/23 08:41 01/05/23 09:02 Ketorolac Tromethamine 30 Mg/Ml Vial IM 01/05/23 08:42 30 mg ONCE ONE Administration Medical Decision Making Medical Decision Making MDM Narrative: 67-year-old female with a past medical history of asthma, HTN, diabetes, osteoarthritis, presenting to the ED complaining of acute on chronic bilateral knee pain x months. on exam vital signs stable, NAD, nontoxic appearing, physical exam as above. Concern for acute osteoarthritic flare. the suspicion for septic joint/arthritis, DVT, CHF. No evidence of infection or cellulitis. Low suspicion for fracture /dislocation plan: NSAIDs, PCP/orthopedic follow-up Results discussed with patient including worrisome signs and symptoms and strict return precautions, and when to return to the emergency department. They verbalized understanding and feel safe for discharge at this time. Differential Diagnosis Differential Diagnoses: The differential diagnosis associated with the presentation includes as above Lab Data MDM Lab Attestation statement: I reviewed the patient's lab results. Radiology Impression Discussion of test interpretation with radiology: I have reviewed the radiologist's reading. External Record Review External record reviewed: Outpatient record, Prior outpatient labs and Prior outpatient radiology Prescription Management I considered prescription management with: Pain Medication Discharge Plan Discharge Clinical Impression: Osteoarthritis Patient Disposition: Home, Self-Care Instructions: Osteoarthritis (ED) Additional Instructions: YOU HAVE ARTHRITIS OF BOTH OF HER KNEES. YOU NEED TO FOLLOW-UP WITH HER PRIMARY CARE DOCTOR AND ORTHOPEDICS. NAPROXEN AN ANTI-INFLAMMATORY/PAIN MEDICATION, TAKE WITH FOOD. IN ADDITION TAKE TYLENOL. do not take both naproxen, ibuprofen, and meloxicam at the same time as are similar medications. Pick 1 DICLOFENAC A TOPICAL ANTI-INFLAMMATORY PAIN OINTMENT, APPLY TO HER KNEE JOINTS. If areas being took infected, red, you have decreased mobility, you are unable to walk or have fever return to the emergency department USTED TIENE ARTRITIS EN AMBAS RODILLAS. NECESITA UN SEGUIMIENTO CON RG M?DICO DE ATENCI?N PRIMARIA Y ORTOPEDIA. NAPROXENO REMA MEDICAMENTO ANTIINFLAMATORIO O PARA EL DOLOR, TOME CON ALIMENTOS. ADEM?S [place] TYLENOL. no tome naproxeno, ibuprofeno y meloxicam al mismo tiempo ya que son medicamentos similares. Elige 1 DICLOFENACO REMA IVETTE?ENTO T?OLI ANTIINFLAMATORIO PARA EL DOLOR, APLICAR EN LAS ARTICULACIONES DE L[place] RODILLAS. Si las ?reas que se tomaron est?n infectadas, angelo, tiene movilidad reducida, no puede caminar o tiene fiebre, regrese al departamento de emergencias Prescriptions: New diclofenac sodium [Arthritis Pain (diclofenac)] 1 % gel 4 g topical QID Qty: 100 0RF Rx Instructions: apply to single knee, ankle, foot; for foot includes sole/toes/top of foot acetaminophen [Tylenol Extra Strength] 500 mg tablet 500 mg PO Q6H PRN (Reason: fever or pain) Qty: 14 0RF naproxen 500 mg tablet 500 mg PO BID PRN (Reason: pain) 10 Days Qty: 20 0RF No Action lidocaine 4 % adhesive patch,medicated 1 patch topical DAILY PRN (Reason: pain) Qty: 10 0RF Rx Instructions: may leave on for up to 12 hrs hydrocodone-acetaminophen 5-325 mg tablet 1 tab PO Q6H PRN (Reason: pain) Qty: 12 0RF (DME) cane Device See Rx Instructions .Route Qty: 1 0RF Rx Instructions: As directed ibuprofen 400 mg tablet 400 mg PO Q8H PRN (Reason: pain) Qty: 30 0RF trazodone 300 mg tablet 300 mg PO BEDTIME (DME) lancets 33 gauge misc See Rx Instructions .ROUTE .MEDSUPPLY Qty: 100 Rx Instructions: As directed Fish Oil 340-1,000 mg capsule 1 cap PO BID rosuvastatin 20 mg tablet 20 mg PO BEDTIME docusate sodium 100 mg capsule 100 mg PO BID citalopram 20 mg tablet 20 mg PO BEDTIME aspirin 81 mg tablet,delayed release (DR/EC) 81 mg PO QAM amlodipine 10 mg tablet 10 mg PO DAILY hydroxyzine HCl 25 mg tablet 25 mg PO TID PRN (Reason: anxiety) meloxicam 7.5 mg tablet 7.5 mg PO BID omeprazole 20 mg capsule,delayed release(DR/EC) 20 mg PO QAM multivitamin Tablet 1 tab PO QAM baclofen 10 mg tablet 10 mg PO DAILY valsartan 320 mg tablet 320 mg PO DAILY paroxetine HCl [Paxil] 10 mg tablet 10 mg PO DAILY fluticasone furoate 50 mcg/actuation blister with device inhalation Referrals: [facility] Orthopedic Surgeons [Provider Group] [facility] Rheumatology Service [Provider Group] Joon Lyles MD [Primary Care Provider] - Interventions: ED Discharge Assessment Last Done: 01/05/23 09:12 Discharge Date/Time: 01/05/23 09:13 Print Language: American
[2023-01-05] MEDS: Ketorolac Tromethamine 30 MG/ML VIAL IM (09:02)
== END 2023-01-05 09:13 | disposition home or self-care (01) ==
PROVIDERS: Emergency Provider Emergency Medicine; PCP Internal Medicine
DX: M17.0 Bilateral primary osteoarthritis of knee (principal); M25.562 Pain in left knee; M25.561 Pain in right knee; E11.9 Type 2 diabetes mellitus without complications; I10 Essential (primary) hypertension; Z79.82 Long term (current) use of aspirin; Z79.899 Other long term (current) drug therapy; Z79.02 Long term (current) use of antithrombotics/antiplatelets
CPT/HCPCS: 96372; 99283; 99284; J1885

== ENCOUNTER 2023-01-10 11:03 | Outpatient (REF) | payer OTHER, SELFPAY ==
--- NOTE | ~2023-01-10 | XR_ITS ---
EXAMINATION: XR KNEE AP STANDING CLINICAL INFORMATION: Pain. COMPARISON: None TECHNIQUE: AP bilateral standing view of the knees was obtained. FINDINGS: There is severe loss of medial compartment joint space both knees with moderate periarticular spurring. No visible acute fracture, dislocation or subluxation. The soft tissues are normal. XR/XR knee standing BI IMPRESSION: Severe degenerative changes medial compartment both knees. No visible acute fracture or dislocation seen.
== END 2023-01-10 11:04 | disposition home or self-care (01) ==
LOC: HO.HOSX 11:03
PROVIDERS: PCP Internal Medicine; Visit Provider Orthopaedic Surgery
DX: M17.0 Bilateral primary osteoarthritis of knee (principal); E11.9 Type 2 diabetes mellitus without complications
CPT/HCPCS: 20610; 73565; 99212; J1100

== ENCOUNTER 2023-02-16 08:14 | Emergency (ER) | payer OTHER, SELFPAY ==
[2023-02-16 08:28] VITALS: BP 137/85; PULSE 99; RESP 18; TEMP 35.7; O2SAT 98; BMI 27.1
--- NOTE | 2023-02-16 08:29 | ED.LOWEXIN ---
HPI - Extremity Injury (Lower) General Chief Complaint: Extremity Problem Stated Complaint: Knee pain Time Seen by Provider: 02/16/23 08:25 Source: patient Mode of arrival: ambulatory History of Present Illness HPI Narrative: 67-year-old female with a past medical history of asthma, HTN, diabetes, osteoarthritis, presenting to the ED complaining of?acute on chronic left knee pain x months. Patient reports taking 100 mg of ibuprofen, extra-strength Tylenol, topical diclofenac at home without relief. Denies recent injury/trauma, fall, fever/chills, erythema, weakness MD complaint: knee injury Onset (ago): month(s) Related Data Home Medications Medication Instructions Recorded Confirmed amlodipine 10 mg tablet 10 mg PO DAILY 10/18/20 10/18/20 aspirin 81 mg tablet,delayed 81 mg PO QAM 10/18/20 10/18/20 release baclofen 10 mg tablet 10 mg PO DAILY 10/18/20 10/18/20 citalopram 20 mg tablet 20 mg PO BEDTIME 10/18/20 10/18/20 docusate sodium 100 mg capsule 100 mg PO BID 10/18/20 10/18/20 fluticasone furoate 50 inhalation 10/18/20 10/18/20 mcg/actuation blister powder for inhalation hydroxyzine HCl 25 mg tablet 25 mg PO TID PRN anxiety 10/18/20 10/18/20 lancets 33 gauge #100 ea 10/18/20 10/18/20 meloxicam 7.5 mg tablet 7.5 mg PO BID 10/18/20 10/18/20 multivitamin 1 tab PO QAM 10/18/20 10/18/20 omega-3 fatty acids-fish oil 340 1 cap PO BID 10/18/20 10/18/20 mg-1,000 mg capsule omeprazole 20 mg capsule,delayed 20 mg PO QAM 10/18/20 10/18/20 release paroxetine HCl 10 mg tablet (Paxil) 10 mg PO DAILY 10/18/20 10/18/20 rosuvastatin 20 mg tablet 20 mg PO BEDTIME 10/18/20 10/18/20 trazodone 300 mg tablet 300 mg PO BEDTIME 10/18/20 10/18/20 valsartan 320 mg tablet 320 mg PO DAILY 10/18/20 10/18/20 Previous Rx's Medication Instructions Recorded hydrocodone 5 mg-acetaminophen 325 1 tab PO Q6H PRN pain #12 tabs 02/25/21 mg tablet lidocaine 4 % topical patch 1 patch topical DAILY PRN pain #10 02/25/21 ea cane #1 ea 05/13/22 ibuprofen 400 mg tablet 400 mg PO Q8H PRN pain #30 tabs 08/25/22 acetaminophen 500 mg tablet 500 mg PO Q6H PRN fever or pain 01/05/23 (Tylenol Extra Strength) #14 tabs diclofenac sodium 1 % topical gel 4 g topical QID #100 grams 01/05/23 (Arthritis Pain (diclofenac)) naproxen 500 mg tablet 500 mg PO BID PRN pain 10 days #20 01/05/23 tabs Allergies Allergy/AdvReac Type Severity Reaction Status Date / Time penicillin V Allergy Unknown swelling Verified 01/10/23 11:22 Penicillins Allergy Unknown RASH,SWELLI Verified 01/10/23 11:22 NG Review of Systems Review of Systems: Constitutional: No Fever, No Chills ENT/Mouth: No Ear Pain, No Nasal Congestion, No sore throat, No Rhinorrhea, No Swallowing Difficulty Cardiovascular: No Chest Pain, No SOB Respiratory: No Cough, No Sputum, No Wheezing Gastrointestinal: No Nausea, No Vomiting, No Diarrhea, No Constipation, No Abdominal pain Genitourinary: No Dysuria, No Urinary Frequency, No Hematuria, No Flank Pain Musculoskeletal: + joint pain, No Myalgias, No Joint Swelling Skin: No Skin Lesions, No rash Neuro: No Weakness, No Numbness, No Paresthesias Yes all other systems are reviewed and are negative Constitutional: Constitutional: Reports as per [facility] Past Medical History Attestation statement: The following information was validated with the patient. Medical History Asthma Hypertension Rotator cuff impingement syndrome of right shoulder Type 2 diabetes mellitus Unilateral primary osteoarthritis, left knee Surgical History History of carpal tunnel release History of hernia repair Family History Family History Mother No problems noted. Father No problems noted. Social History Social History (Reviewed 02/16/23 @ 08:40 by MEGA Mcgee Alcohol intake: never Smoked in Last 30 Days: Yes Use of substances other than those prescribed or required for medical reasons: No Advance Directives: No Current occupational status: disabled Current occupation: Right Handed Physical Exam Vital Signs: Vital Signs: Last Vital Signs Temp 96.3 F L 02/16/23 08:28 Pulse 99 02/16/23 08:28 Resp 18 02/16/23 08:28 BP 137/85 02/16/23 08:28 Pulse Ox 98 02/16/23 08:28 O2 Del Method Room Air 02/16/23 08:28 BMI result Body Mass Index 27.1 Const: General: cooperative, healthy appearing and no acute distress Orientation/consciousness: patient oriented x3 Limitations: no limitations HEENT: Head: Yes normal to inspection and Yes atraumatic Ears: hearing grossly normal bilaterally General nose exam: Normal external nose present Face and sinus: Yes normal facial exam Eyes: General: appearance normal, both eyes and all related structures EOM: EOMs intact bilaterally Neck: Neck: Yes normal visual inspection and Yes no meningeal signs Resp: Effort & Inspection: normal respiratory effort and no respiratory distress Cardio: Rate: regular rate Heart sounds: S1 normal heart sound present and S2 normal heart sound present Peripheral pulses: dorsalis pedis present Skin: Rashes: no rashes Wounds: no wounds Neuro: General: patient oriented x3, tone normal and no meningeal signs Gait exam (Neuro): Normal gait present Extrem: Other: + mild left knee swelling > medial aspect with tenderness to palpation. No overlying erythema/warmth. Limited flexion secondary to pain. Extension intact. Neurovascular intact distally. Medications Administered Discontinued Medications Generic Name Dose Route Start Last Admin Trade Name Freq PRN Reason Stop Dose Admin Tramadol HCl 50 mg 02/16/23 08:38 02/16/23 08:48 Tramadol Hcl 50 Mg Tablet PO 02/16/23 08:39 50 mg ONCE ONE Administration Medical Decision Making Medical Decision Making MDM Narrative: 67-year-old female with a past medical history of asthma, HTN, diabetes, osteoarthritis, presenting to the ED complaining of?acute on chronic left knee pain x months. On exam vital signs stable, NAD, nontoxic appearing cough physical exam as above. Concern for osteoarthritic flare. 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 Recommended close orthopedic and pain management follow-up Will give patient 1 time dose of tramadol in the ED refer to specialist Please refer to course for remaining clinical decision making, interpretation of labs/imaging results, and discussions with consultants and/or family members. Differential Diagnosis Differential Diagnoses: The differential diagnosis associated with the presentation includes As above Admission/Observation Consideration of admission/observation: Escalation of care including admission/observation considered Lab Data MDM Lab Attestation statement: I reviewed the patient's lab results. Radiology Impression Discussion of test interpretation with radiology: I have reviewed the radiologist's reading. External Record Review External record reviewed: Inpatient record, Office record, Outpatient record, Prior outpatient labs, Prior outpatient radiology, Primary care record and Outside ED record Discharge Plan Discharge Clinical Impression: Knee osteoarthritis Patient Disposition: Home, Self-Care Instructions: Osteoarthritis (DC) Additional Instructions: Please continue previously prescribed medications. In addition may recommend follow up with Orthopedics and Pain Management Ice and elevate if area begins to look infected, is red, you have fever, your unable to ambulate return to the ED Contin?e con los medicamentos recetados anteriormente. Adem?s, puede recomendar un seguimiento con ortopedia y manejo del dolor. Hielo y eleva si el ?narinder comienza a lucir infectada, est? angelica, tiene fiebre, no puede deambular, regrese al servicio de urgencias Prescriptions: No Action lidocaine 4 % adhesive patch,medicated 1 patch topical DAILY PRN (Reason: pain) Qty: 10 0RF Rx Instructions: may leave on for up to 12 hrs hydrocodone-acetaminophen 5-325 mg tablet 1 tab PO Q6H PRN (Reason: pain) Qty: 12 0RF (DME) cane Device See Rx Instructions .Route Qty: 1 0RF Rx Instructions: As directed ibuprofen 400 mg tablet 400 mg PO Q8H PRN (Reason: pain) Qty: 30 0RF diclofenac sodium [Arthritis Pain (diclofenac)] 1 % gel 4 g topical QID Qty: 100 0RF Rx Instructions: apply to single knee, ankle, foot; for foot includes sole/toes/top of foot acetaminophen [Tylenol Extra Strength] 500 mg tablet 500 mg PO Q6H PRN (Reason: fever or pain) Qty: 14 0RF naproxen 500 mg tablet 500 mg PO BID PRN (Reason: pain) 10 Days Qty: 20 0RF trazodone 300 mg tablet 300 mg PO BEDTIME (DME) lancets 33 gauge misc See Rx Instructions .ROUTE .MEDSUPPLY Qty: 100 Rx Instructions: As directed Fish Oil 340-1,000 mg capsule 1 cap PO BID rosuvastatin 20 mg tablet 20 mg PO BEDTIME docusate sodium 100 mg capsule 100 mg PO BID citalopram 20 mg tablet 20 mg PO BEDTIME aspirin 81 mg tablet,delayed release (DR/EC) 81 mg PO QAM amlodipine 10 mg tablet 10 mg PO DAILY hydroxyzine HCl 25 mg tablet 25 mg PO TID PRN (Reason: anxiety) meloxicam 7.5 mg tablet 7.5 mg PO BID omeprazole 20 mg capsule,delayed release(DR/EC) 20 mg PO QAM multivitamin Tablet 1 tab PO QAM baclofen 10 mg tablet 10 mg PO DAILY valsartan 320 mg tablet 320 mg PO DAILY paroxetine HCl [Paxil] 10 mg tablet 10 mg PO DAILY fluticasone furoate 50 mcg/actuation blister with device inhalation [place] [facility] [place] [facility] [facility] [facility] [place] [facility] [place]] Interventions: ED Discharge Assessment Last Done: 02/16/23 08:52 Discharge Date/Time: 02/16/23 08:53 Print Language: Macedonian
--- NOTE | 2023-02-16 08:47 | PC.NURSE ---
pt AOx3, reporting bilateral pain in knees primarily on left side 10/10. bilateral DP pulses palpable. limited range of motion.
[2023-02-16] MEDS: traMADoL HCL 50 MG TABLET PO (08:48)
== END 2023-02-16 08:53 | disposition home or self-care (01) ==
PROVIDERS: Emergency Provider Emergency Medicine; PCP Internal Medicine
DX: M17.12 Unilateral primary osteoarthritis, left knee (principal); M25.562 Pain in left knee; E11.9 Type 2 diabetes mellitus without complications; I10 Essential (primary) hypertension; Z79.82 Long term (current) use of aspirin; Z79.899 Other long term (current) drug therapy
CPT/HCPCS: 99283; 99284

== ENCOUNTER 2023-10-19 07:44 | Emergency (ER) | payer OTHER, SELFPAY ==
--- NOTE | ~2023-10-19 | XR_ITS ---
EXAMINATION: XR KNEE, LEFT CLINICAL INFORMATION: Pain COMPARISON: Previous x-ray most recent January 2023 TECHNIQUE: Two views of the left knee. FINDINGS: Bone alignment is normal. No fracture or dislocation. There is severe arthritis with joint space narrowing and osteophyte formation at the medial femoral tibial and patellofemoral joints. Small osteophyte at the quadriceps tendon insertion to the patella. There is no significant joint effusion. There is atherosclerotic disease. XR/XR knee LT 2V IMPRESSION: Severe arthritis not appreciably changed from previous exams
[2023-10-19 08:14] VITALS: BP 148/85; PULSE 97; RESP 20; TEMP 36.2; O2SAT 97; BMI 29.1
--- NOTE | 2023-10-19 09:23 | ED_ITS ---
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 Patient states that she gets this pain intermittently and sees an orthopedic provider who gives her shots but she has not had a shot for a few months. Patient denies any dizziness, lightheadedness, abdominal pain, nausea, vomiting, fever, chills, blurry vision, double vision, loss of vision, chest pain, difficulty breathing, shortness of breath, back pain, night sweats, pain with urination, increased urinary frequency, increased urinary urgency, blood in her urine or stool, syncope or a near syncopal episode, recent trauma or falls, bowel incontinence, bladder incontinence, bowel retention, bladder retention, or any other complaints at this time. Onset (ago): year(s) Location: left and lower extremity Radiation: non-radiation Severity: mild Severity scale (1-10): 3 Quality: aching and dull Pain Consistency: constant Relieving factors: none Exacerbating factors: none Associated symptoms: denies other symptoms Treatments prior to arrival: none Related Data Home Medications Medication Instructions Recorded Confirmed amlodipine 10 mg tablet 10 mg PO DAILY 10/18/20 10/18/20 aspirin 81 mg tablet,delayed 81 mg PO QAM 10/18/20 10/18/20 release baclofen 10 mg tablet 10 mg PO DAILY 10/18/20 10/18/20 citalopram 20 mg tablet 20 mg PO BEDTIME 10/18/20 10/18/20 docusate sodium 100 mg capsule 100 mg PO BID 10/18/20 10/18/20 fluticasone furoate 50 inhalation 10/18/20 10/18/20 mcg/actuation blister powder for inhalation hydroxyzine HCl 25 mg tablet 25 mg PO TID PRN anxiety 10/18/20 10/18/20 lancets 33 gauge #100 ea 10/18/20 10/18/20 meloxicam 7.5 mg tablet 7.5 mg PO BID 10/18/20 10/18/20 multivitamin 1 tab PO QAM 10/18/20 10/18/20 omega-3 fatty acids-fish oil 340 1 cap PO BID 10/18/20 10/18/20 mg-1,000 mg capsule omeprazole 20 mg capsule,delayed 20 mg PO QAM 10/18/20 10/18/20 release paroxetine HCl 10 mg tablet (Paxil) 10 mg PO DAILY 10/18/20 10/18/20 rosuvastatin 20 mg tablet 20 mg PO BEDTIME 10/18/20 10/18/20 trazodone 300 mg tablet 300 mg PO BEDTIME 10/18/20 10/18/20 valsartan 320 mg tablet 320 mg PO DAILY 10/18/20 10/18/20 Previous Rx's Medication Instructions Recorded hydrocodone 5 mg-acetaminophen 325 1 tab PO Q6H PRN pain #12 tabs 02/25/21 mg tablet lidocaine 4 % topical patch 1 patch topical DAILY PRN pain #10 02/25/21 ea cane #1 ea 05/13/22 ibuprofen 400 mg tablet 400 mg PO Q8H PRN pain #30 tabs 08/25/22 acetaminophen 500 mg tablet 500 mg PO Q6H PRN fever or pain 01/05/23 (Tylenol Extra Strength) #14 tabs diclofenac sodium 1 % topical gel 4 g topical QID #100 grams 01/05/23 (Arthritis Pain (diclofenac)) naproxen 500 mg tablet 500 mg PO BID PRN pain 10 days #20 01/05/23 tabs naproxen 500 mg tablet 500 mg PO BID 7 days #14 tabs 10/19/23 prednisone 20 mg tablet 20 mg PO DAILY 7 days #7 tabs 10/19/23 Allergies Allergy/AdvReac Type Severity Reaction Status Date / Time penicillin V Allergy Unknown swelling Verified 01/10/23 11:22 Penicillins Allergy Unknown RASH,SWELLI Verified 01/10/23 11:22 NG Review of Systems Constitutional: Constitutional: Reports no additional constitutional complaints, Denies chills, Denies fever(s) and Denies night sweats Eyes: Eyes: Reports no additional eye complaints, Denies blurry vision, Denies change in vision, Denies diplopia, Denies eye discharge, Denies loss of vision and Denies eye pain ENT: Denies dizziness Cardiovascular: Cardiovascular: Reports no additional cardiovascular complaints, Denies chest pain, Denies lightheadedness, Denies Loss of Consciousness and Denies dyspnea Respiratory: Respiratory: Reports no additional respiratory complaints and Denies dyspnea Gastrointestinal: Gastrointestinal: Reports no additional gastrointestinal complaints, Denies abdominal pain, Denies melena, Denies hematochezia, Denies change in bowel habits and Denies change in stool character Genitourinary: Genitourinary: Denies hematuria, Denies urinary frequency, Denies dysuria, Denies urinary incontinence, Denies urinary hesitancy and Denies urinary urgency Musculoskeletal: Musculoskeletal: Reports no additional musculoskeletal complaints, Denies numbness and Denies tingling Comments: left knee pain Neurologic: Denies dizziness, Denies loss of vision, Denies numbness and Denies tingling Psychiatric: Psychiatric: Reports no additional psychiatric complaints Endocrine: Endocrine: Reports no additional endocrine complaints Hematologic/Lymphatic: Hematologic/Lymphatic: Reports no additional hematologic/lymphatic complaints Allergic/Immunologic: Allergic/Immunologic: Reports no additional allergic/immunologic complaints [facility] Past Medical History Attestation statement: The following information was validated with the patient. Source: old records reviewed and nursing notes reviewed Medical History Hypertension Asthma Type 2 diabetes mellitus Rotator cuff impingement syndrome of right shoulder Unilateral primary osteoarthritis, left knee Surgical History History of hernia repair History of carpal tunnel release Family History Family History Mother No problems noted. Father No problems noted. Social History Social History Alcohol intake: never Advance Directives: No Advance Directives Information Provided: No Current occupational status: disabled Current occupation: Right Handed Physical Exam ED Vital Signs: Vital Signs - 24 hr 10/19/23 08:14 Temperature 97.2 F Pulse Rate 97 Respiratory Rate 20 Blood Pressure 148/85 H Pulse Oximetry 97 Oxygen Delivery Method Room Air BMI result Body Mass Index 29.1 Const General: cooperative, no acute distress, alert and awake Nutritional Appearance: well nourished Orientation/consciousness: patient oriented x3 Limitations: no limitations HENMT Head: Yes normal to inspection and Yes atraumatic Ears: hearing grossly normal bilaterally and external ears normal General nose exam: Normal external nose present, no nasal discharge noted and no epistaxis Face and sinus: Yes normal facial exam, No abrasion and No laceration Mouth: Normal oral and palatal mucosa present, no drooling and no muffled voice Eyes General: appearance normal, both eyes and all related structures Periorbital: periorbital findings normal Eyelids: Yes eyelids normal Conjunctivae: conjunctivae normal Pupils: Equal, round and reactive pupils present EOM: EOMs intact bilaterally Neck Neck: Yes normal visual inspection, Yes full ROM and Yes no lymphadenopathy Chest Chest palpation & inspection: normal inspection of the chest Resp Effort & Inspection: normal respiratory effort and able to speak in complete sentences GI Inspection: Yes normal to inspection Neuro General: patient oriented x3 and moves all extremities Cranial nerves: Yes Equal, round and reactive pupils present Cognition (Neuro): normal cognition Motor exam (neuro): 5/5 motor strength present throughout Sensory Exam: Normal double simultaneous stimulation for sensation Coordination: [id number] test normal Extrem General: Yes normal to inspection, Yes full ROM and Yes capillary refill normal Psych Appearance: grossly normal Mental Status: mental status grossly normal Affect: normal affect Attitude: cooperative Thought process: Normal thought process present Thought content: Normal thought content present Insight: Good insight present (Psych) Medications Administered Discontinued Medications Generic Name Dose Route Start Last Admin Trade Name Freq PRN Reason Stop Dose Admin Ketorolac Tromethamine 15 mg 10/19/23 09:31 10/19/23 09:45 Ketorolac Tromethamine 15 Mg/Ml Vial IM 10/19/23 09:32 15 mg ONCE ONE Administration Prednisone 20 mg 10/19/23 09:31 10/19/23 09:45 Prednisone 20 Mg Tablet PO 10/19/23 09:32 20 mg ONCE ONE Administration Medical Decision Making Medical Decision Making [facility] Narrative: Patient is a 68 year old assigned female at with a history of arthritis presenting to the emergency department today with left knee pain. Patient's physical exam was unremarkable. Patient's left knee x-ray showed evidence of arthritis. I explained my physical exam findings as well as all test results to the patient. I answered all questions asked by the patient. Patient received prednisone and toradol which she stated helped her symptoms significantly. I stressed the importance of the patient taking her medication as prescribed. I stressed the importance of the patient following up with her primary care provider and an orthopedic provider. I stressed the importance of the patient returning to the emergency department immediately if her symptoms were to worsen or if she were to develop any dizziness, shortness of breath, difficulty breathing, chest pain, blurry vision, loss of vision, nausea, vomiting, abdominal pain, fever, chills, back pain, or any other complaints. Patient verbalized agreement and understanding with this treatment plan and discharge. Differential Diagnosis Differential Diagnoses: The differential diagnosis associated with the presentation includes Left knee pain Left knee strain Left knee sprain Left knee arthritis Independent Interpretation I performed an independent interpretation of an: Plain X-Ray Interpretation: My interpretation is in agreement with the radiologist's impression of this imaging study. EXAMINATION: XR KNEE, LEFT CLINICAL INFORMATION: Pain COMPARISON: Previous x-ray most recent January 2023 TECHNIQUE: Two views of the left knee. FINDINGS: Bone alignment is normal. No fracture or dislocation. There is severe arthritis with joint space narrowing and osteophyte formation at the medial femoral tibial and patellofemoral joints. Small osteophyte at the quadriceps tendon insertion to the patella. There is no significant joint effusion. There is atherosclerotic disease. XR/XR knee LT 2V IMPRESSION: Severe arthritis not appreciably changed from previous exams Dictated By: Rona Mcclain MD Signed By: Electronically signed by Rona Mcclain MD 10/19/23 1056 Radiology Impression Discussion of test interpretation with radiology: I have reviewed the radiologist's reading. Prescription Management I considered prescription management with: Pain Medication (patient prescribed pain medication) Discharge Plan Discharge Clinical Impression: Osteoarthritis Patient Disposition: Home, Self-Care Instructions: Osteoarthritis (DC) Additional Instructions: Follow up with your primary care provider and an orthopedic provider. Return to the emergency department immediately if your symptoms worsen or if you develop any dizziness, shortness of breath, difficulty breathing, chest pain, blurry vision, loss of vision, nausea, vomiting, abdominal pain, fever, chills, back pain, or any other complaints. Sebastian un seguimiento con lozoya proveedor de atenci?n primaria y un proveedor ortop?dico. Regrese al departamento de emergencias inmediatamente si steve s?ntomas empeoran o si presenta mareos, dificultad para respirar, dificultad para respirar, dolor en el pecho, visi?n borrosa, p?rdida de la visi?n, n?useas, v?mitos, dolor abdominal, fiebre, escalofr?os, dolor de espalda o cualquier otras quejas. Prescriptions: New prednisone 20 mg tablet 20 mg PO DAILY 7 Days Qty: 7 0RF naproxen 500 mg tablet 500 mg PO BID 7 Days Qty: 14 0RF No Action lidocaine 4 % adhesive patch,medicated 1 patch topical DAILY PRN (Reason: pain) Qty: 10 0RF Rx Instructions: may leave on for up to 12 hrs hydrocodone-acetaminophen 5-325 mg tablet 1 tab PO Q6H PRN (Reason: pain) Qty: 12 0RF (DME) cane Device See Rx Instructions .Route Qty: 1 0RF Rx Instructions: As directed ibuprofen 400 mg tablet 400 mg PO Q8H PRN (Reason: pain) Qty: 30 0RF diclofenac sodium [Arthritis Pain (diclofenac)] 1 % gel 4 g topical QID Qty: 100 0RF Rx Instructions: apply to single knee, ankle, foot; for foot includes sole/toes/top of foot acetaminophen [Tylenol Extra Strength] 500 mg tablet 500 mg PO Q6H PRN (Reason: fever or pain) Qty: 14 0RF naproxen 500 mg tablet 500 mg PO BID PRN (Reason: pain) 10 Days Qty: 20 0RF trazodone 300 mg tablet 300 mg PO BEDTIME (DME) lancets 33 gauge misc See Rx Instructions .ROUTE .MEDSUPPLY Qty: 100 Rx Instructions: As directed Fish Oil 340-1,000 mg capsule 1 cap PO BID rosuvastatin 20 mg tablet 20 mg PO BEDTIME docusate sodium 100 mg capsule 100 mg PO BID citalopram 20 mg tablet 20 mg PO BEDTIME aspirin 81 mg tablet,delayed release (DR/EC) 81 mg PO QAM amlodipine 10 mg tablet 10 mg PO DAILY hydroxyzine HCl 25 mg tablet 25 mg PO TID PRN (Reason: anxiety) meloxicam 7.5 mg tablet 7.5 mg PO BID omeprazole 20 mg capsule,delayed release(DR/EC) 20 mg PO QAM multivitamin Tablet 1 tab PO QAM baclofen 10 mg tablet 10 mg PO DAILY valsartan 320 mg tablet 320 mg PO DAILY paroxetine HCl [Paxil] 10 mg tablet 10 mg PO DAILY fluticasone furoate 50 mcg/actuation blister with device inhalation Referrals: Joon Lyles MD [Primary Care Provider] - Print Language: Slovenian
[2023-10-19] MEDS: predniSONE 20 MG TABLET PO (09:45)
[2023-10-19] MEDS: Ketorolac Tromethamine 15 MG/ML VIAL IM (09:45)
== END 2023-10-19 11:07 | disposition home or self-care (01) ==
PROVIDERS: Emergency Provider Emergency Medicine Emergency Medical Services; PCP Internal Medicine
DX: M17.9 Osteoarthritis of knee, unspecified (principal); M25.562 Pain in left knee; Z79.899 Other long term (current) drug therapy
CPT/HCPCS: 73560; 96372; 99283; 99284; J1885

== ENCOUNTER 2024-03-21 06:35 | Emergency (ER) | payer OTHER, SELFPAY ==
[2024-03-21 06:40] VITALS: BP 145/86; PULSE 96; RESP 14; TEMP 36.4; O2SAT 98; BMI 29.0
[2024-03-21 06:55] LABS: MANUAL DIFF FLAG NO
[2024-03-21 06:59] LABS: Basophils Percent Auto 0.4 % (0-2); Eosinophils Absolute Auto 0.3 X10*3/uL (0.0-0.4); Eosinophils Percent Auto 2.6 % (0-4); Hematocrit 39.6 % (37.0-47.0); Hemoglobin 12.9 g/dl (12.0-16.0); Imm Gran Abs Auto 0.03 X10*3/uL (0.00-0.03); Imm Gran Pct Auto 0.3 % (0.0-0.4); Lymphocytes Absolute Auto 2.8 X10*3/uL (1.2-4.9); Lymphocytes Percent Auto 28.1 % (20-40); Mean Corpuscular HGB Conc 32.6 g/dl (31.0-35.0); Mean Corpuscular Hemoglobin 29.6 pg (27.0-33.0); Mean Corpuscular Volume 90.8 fL (80.0-98.0); Mean Platelet Volume 9.8 fL (9.4-12.3); Monocytes Absolute Auto 0.8 X10*3/uL (0.1-1.2); Monocytes Percent Auto 8.1 % (2-11); Neutrophils Absolute Auto 6.1 x10*3/uL (2.0-8.3); Neutrophils Percent Auto 60.5 % (45-73); Platelet Count 422 X10*3/uL (160-400); Red Blood Count 4.36 X10*6/uL (4.20-5.50); Red Cell Distribution Width 15.1 % (11.0-16.0)
[2024-03-21 07:07] LABS: D Dimer High Sensitivity 296 NG/ML
[2024-03-21 07:19] LABS: Alanine Aminotransferase 10 U/L (0-31); Albumin Level 4.2 g/dL (3.5-5.0); Alkaline Phosphatase 126 U/L (39-117); Anion Gap 14 (12-20); Aspartate Amino Transferase 15 U/L (5-31); Bilirubin Total 0.3 mg/dL (0.0-1.0); Blood Urea Nitrogen 15 mg/dL (9-16); Calcium 10.1 mg/dL (8.4-10.2); Carbon Dioxide 26 mmol/L (22-29); Chloride 106 mmol/L (96-108); Creatinine Clr Calc Pharmacy 76.6; Estimated Glomerular Filt Rate > 60; Glucose Random 104 mg/dL (60-115); Potassium 3.5 mmol/L (3.3-5.1); Sodium 142 mmol/L (135-145); Total Protein 7.7 g/dL (6.5-8.0)
--- NOTE | 2024-03-21 07:41 | ED_ITS ---
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 Related Data Home Medications ?Medication ?Instructions ?Recorded ?Confirmed amlodipine 10 mg tablet 10 mg PO DAILY 10/18/20 10/18/20 aspirin 81 mg tablet,delayed 81 mg PO QAM 10/18/20 10/18/20 release baclofen 10 mg tablet 10 mg PO DAILY 10/18/20 10/18/20 citalopram 20 mg tablet 20 mg PO BEDTIME 10/18/20 10/18/20 docusate sodium 100 mg capsule 100 mg PO BID 10/18/20 10/18/20 fluticasone furoate 50 inhalation 10/18/20 10/18/20 mcg/actuation blister powder for inhalation hydroxyzine HCl 25 mg tablet 25 mg PO TID PRN anxiety 10/18/20 10/18/20 lancets 33 gauge #100 ea 10/18/20 10/18/20 meloxicam 7.5 mg tablet 7.5 mg PO BID 10/18/20 10/18/20 multivitamin 1 tab PO QAM 10/18/20 10/18/20 omega-3 fatty acids-fish oil 340 1 cap PO BID 10/18/20 10/18/20 mg-1,000 mg capsule omeprazole 20 mg capsule,delayed 20 mg PO QAM 10/18/20 10/18/20 release paroxetine HCl 10 mg tablet (Paxil) 10 mg PO DAILY 10/18/20 10/18/20 rosuvastatin 20 mg tablet 20 mg PO BEDTIME 10/18/20 10/18/20 trazodone 300 mg tablet 300 mg PO BEDTIME 10/18/20 10/18/20 valsartan 320 mg tablet 320 mg PO DAILY 10/18/20 10/18/20 Previous Rx's ?Medication ?Instructions ?Recorded hydrocodone 5 mg-acetaminophen 325 1 tab PO Q6H PRN pain #12 tabs 02/25/21 mg tablet lidocaine 4 % topical patch 1 patch topical DAILY PRN pain #10 02/25/21 ea cane #1 ea 05/13/22 ibuprofen 400 mg tablet 400 mg PO Q8H PRN pain #30 tabs 08/25/22 acetaminophen 500 mg tablet 500 mg PO Q6H PRN fever or pain 01/05/23 (Tylenol Extra Strength) #14 tabs diclofenac sodium 1 % topical gel 4 g topical QID #100 grams 01/05/23 (Arthritis Pain (diclofenac)) naproxen 500 mg tablet 500 mg PO BID PRN pain 10 days #20 01/05/23 tabs naproxen 500 mg tablet 500 mg PO BID 7 days #14 tabs 10/19/23 prednisone 20 mg tablet 20 mg PO DAILY 7 days #7 tabs 10/19/23 Allergies Allergy/AdvReac Type Severity Reaction Status Date / Time penicillin V Allergy Unknown swelling Verified 03/21/24 06:43 Penicillins Allergy Unknown RASH,SWELLI Verified 03/21/24 06:43 NG Review of Systems 2 Review of Systems: Pertinent positives and negatives as stated in [facility] Past Medical History Source: nursing notes reviewed Medical History Hypertension Asthma Type 2 diabetes mellitus Rotator cuff impingement syndrome of right shoulder Unilateral primary osteoarthritis, left knee Surgical History History of hernia repair History of carpal tunnel release Family History Family History Mother No problems noted. Father No problems noted. Social History Social History Alcohol intake: never Advance Directives: No Current occupational status: disabled Current occupation: Right Handed Physical Exam ED Vital Signs: Vital Signs - 24 hr 03/21/24 06:40 Temperature 97.6 F Pulse Rate 96 Respiratory Rate 14 Blood Pressure 145/86 H Pulse Oximetry 98 Oxygen Delivery Method Room Air BMI result Body Mass Index 29.0 VITAL SIGNS: Reviewed. GENERAL: Well developed, well nourished, in no acute distress. HEAD: Normocephalic/atraumatic EYES: PERRLA, EOMI LUNGS: Normal breath sounds. No adventitious sounds or accessory muscle use. SpO2<98> CARDIOVASCULAR: Regular rate and rhythm without noted murmurs, no JVD or lower extremity edema. ABDOMEN: Soft, non-tender, non-distended with bowel sounds. MUSCULOSKELETAL: No tenderness, deformities, or effusions noted on gross inspection. EXTREMITIES: No cyanosis, clubbing or edema. LEFT LOWER EXTREMITY: No obvious deformity, varicose veins noted, knee without erythema/induration, no fluctuance of the knee, good pulses and sensation SKIN: Inspection of the skin reveals no rashes NEUROLOGIC: Alert and oriented x 4. Strength and sensation to light touch were grossly intact x 4. Medical Decision Making Medical Decision Making [facility] Narrative: 68-year-old female with history and clinical presentation, DDX: Thrombophlebitis, left knee arthritis, varicose veins, no clinical suspicion for DVT and age adjusted D-dimer -335 with a laboratory value of 296. I reviewed all investigations and hematologic indices negative for leukocytosis/left shift/anemia there is a mild bump in platelets-422. D-dimer-296 and chemistry indices negative for CJ/electrolyte or liver enzyme derangements. I did review prior x-ray which demonstrates severe arthritis. Patient given combination analgesics, also counseled on wearing compression stockings during the day instead of only at night and also recommended to the patient discussing with her primary care doctor a referral for knee injections and possible specialist evaluation for removal of venous varicosities. She is otherwise discharged home. Differential Diagnosis Differential Diagnoses: The differential diagnosis associated with the presentation includes Please see the discussion above Admission/Observation Consideration of admission/observation: Escalation of care including admission/observation considered Please see the discussion above Lab Data [facility] Lab Attestation statement: I reviewed the patient's lab results. Please see the discussion above 03/21/24 06:49 03/21/24 06:49 Labs: Lab Results 03/21/24 Range/Units 06:49 WBC 10.0 (4.8-10.8) X10*3/uL RBC 4.36 (4.20-5.50) X10*6/uL Hgb 12.9 (12.0-16.0) g/dl Hct 39.6 (37.0-47.0) % MCV 90.8 (80.0-98.0) fL MCH 29.6 (27.0-33.0) pg MCHC 32.6 (31.0-35.0) g/dl RDW 15.1 (11.0-16.0) % Plt Count 422 H (160-400) X10*3/uL MPV 9.8 (9.4-12.3) fL Immature Gran % (Auto) 0.3 (0.0-0.4) % Neut % (Auto) 60.5 (45-73) % Lymph % (Auto) 28.1 (20-40) % [place] % (Auto) 8.1 (2-11) % Eos % (Auto) 2.6 (0-4) % Baso % (Auto) 0.4 (0-2) % Lymph # (Auto) 2.8 (1.2-4.9) X10*3/uL [place] # (Auto) 0.8 (0.1-1.2) X10*3/uL Eos # (Auto) 0.3 (0.0-0.4) X10*3/uL Baso # (Auto) 0.0 (0.0-0.2) X10*3/uL Abs Immat Gran (auto) 0.03 (0.00-0.03) X10*3/uL Absolute Neuts (auto) 6.1 (2.0-8.3) x10*3/uL Absolute Nucleated RBC 0.000 (0.0-0.012) X10*3/uL Nucleated RBC % (auto) 0.0 (0.0-0.2) /100WBC D-Dimer High Sensitivty 296 NG/ML Sodium 142 (135-145) mmol/L Potassium 3.5 (3.3-5.1) mmol/L Chloride 106 (96-108) mmol/L Carbon Dioxide 26 (22-29) mmol/L Anion Gap 14 (12-20) BUN 15 (9-16) mg/dL Creatinine 0.74 (0.5-1.4) mg/dL Estim Creat Clear Calc 76.6 Estimated GFR > 60 Random Glucose 104 (60-115) mg/dL Calcium 10.1 (8.4-10.2) mg/dL Total Bilirubin 0.3 (0.0-1.0) mg/dL AST 15 (5-31) U/L ALT 10 (0-31) U/L Alkaline Phosphatase 126 H (39-117) U/L Total Protein 7.7 (6.5-8.0) g/dL Albumin 4.2 (3.5-5.0) g/dL External Record Review External record reviewed: Outpatient record, Prior outpatient labs and Prior outpatient radiology Chronic Conditions Patient?s care impacted by: Diabetes and Hypertension Critical Care Time Critical Care Time Critical Care Time: Yes Total Critical Care Time: 30 Attestation: I personally attest to this time spent taking care of the patient. Discharge Plan Discharge Clinical Impression: Knee pain, left, Varicose veins of both lower extremities, Neuropathy Patient Disposition: Home, Self-Care Instructions: Knee Pain (ED), Peripheral Neuropathy (ED), Arthralgia (ED) Additional Instructions: 1. I recommend wearing your compression stockings throughout the day all you are walking and standing on your feet as this will provide the most support for your legs. 2. Tylenol/ibuprofen as needed for pain control. 3. Discuss possible evaluation of removal varicose veins as well as a referral for knee injections. 4. Follow-up with primary care doctor in the next 1-2 days. Return to the ER for any worsening symptoms. Prescriptions: No Action lidocaine 4 % adhesive patch,medicated 1 patch topical DAILY PRN (Reason: pain) Qty: 10 0RF Rx Instructions: may leave on for up to 12 hrs hydrocodone-acetaminophen 5-325 mg tablet 1 tab PO Q6H PRN (Reason: pain) Qty: 12 0RF (DME) cane Device See Rx Instructions .Route Qty: 1 0RF Rx Instructions: As directed ibuprofen 400 mg tablet 400 mg PO Q8H PRN (Reason: pain) Qty: 30 0RF diclofenac sodium [Arthritis Pain (diclofenac)] 1 % gel 4 g topical QID Qty: 100 0RF Rx Instructions: apply to single knee, ankle, foot; for foot includes sole/toes/top of foot acetaminophen [Tylenol Extra Strength] 500 mg tablet 500 mg PO Q6H PRN (Reason: fever or pain) Qty: 14 0RF naproxen 500 mg tablet 500 mg PO BID PRN (Reason: pain) 10 Days Qty: 20 0RF prednisone 20 mg tablet 20 mg PO DAILY 7 Days Qty: 7 0RF naproxen 500 mg tablet 500 mg PO BID 7 Days Qty: 14 0RF trazodone 300 mg tablet 300 mg PO BEDTIME (DME) lancets 33 gauge misc See Rx Instructions .ROUTE .MEDSUPPLY Qty: 100 Rx Instructions: As directed Fish Oil 340-1,000 mg capsule 1 cap PO BID rosuvastatin 20 mg tablet 20 mg PO BEDTIME docusate sodium 100 mg capsule 100 mg PO BID citalopram 20 mg tablet 20 mg PO BEDTIME aspirin 81 mg tablet,delayed release (DR/EC) 81 mg PO QAM amlodipine 10 mg tablet 10 mg PO DAILY hydroxyzine HCl 25 mg tablet 25 mg PO TID PRN (Reason: anxiety) meloxicam 7.5 mg tablet 7.5 mg PO BID omeprazole 20 mg capsule,delayed release(DR/EC) 20 mg PO QAM multivitamin Tablet 1 tab PO QAM baclofen 10 mg tablet 10 mg PO DAILY valsartan 320 mg tablet 320 mg PO DAILY paroxetine HCl [Paxil] 10 mg tablet 10 mg PO DAILY fluticasone furoate 50 mcg/actuation blister with device inhalation Referrals: Joon Lyles MD [Primary Care Provider] - Print Language: Bengali
[2024-03-21] MEDS: Ibuprofen 400 MG TABLET PO (07:51)
[2024-03-21] MEDS: Acetaminophen 325 MG TABLET 975 MG PO (07:51)
[2024-03-21 07:57] VITALS: BP 160/79; PULSE 70; RESP 16; TEMP 36.8; O2SAT 96
== END 2024-03-21 08:13 | disposition home or self-care (01) ==
PROVIDERS: Emergency Provider Student in an Organized Health Care Education/Training Program; PCP Internal Medicine
DX: M25.562 Pain in left knee (principal); I83.93 Asymptomatic varicose veins of bilateral lower extremities; G62.9 Polyneuropathy, unspecified; I10 Essential (primary) hypertension; E11.9 Type 2 diabetes mellitus without complications
CPT/HCPCS: 36415; 80053; 85025; 85379; 99283

== ENCOUNTER 2025-01-25 06:23 | Emergency (ER) | payer OTHER, SELFPAY ==
--- NOTE | ~2025-01-25 | XR_ITS ---
EXAMINATION: XR KNEE, LEFT CLINICAL INFORMATION: pain, hx of osteoarthritis COMPARISON: Bilateral AP knee standing TECHNIQUE: Four views of the left knee. FINDINGS: There is moderate loss of medial and patellofemoral compartment joint space with significant periarticular osteophytosis. No visible fracture, loose bodies or joint effusion seen. No lytic process. XR/XR knee LT 4V IMPRESSION: Advanced osteoarthritis changes medial and patellofemoral compartments with osteophytosis. Electronically signed by: Ambrocio Woodward MD 01/25/2025 08:25 AM EDT
--- NOTE | ~2025-01-25 | XR_ITS ---
EXAMINATION: XR KNEE, RIGHT CLINICAL INFORMATION: pain, hx of osteoarthritis COMPARISON: None available. TECHNIQUE: Four views of the right knee. FINDINGS: There is moderate reduction in the medial and patellofemoral compartment joint space with periarticular spurring. No visible fracture, dislocation or loose bodies seen. There is no joint effusion noted. The soft tissues are normal. XR/XR knee RT 4V IMPRESSION: Moderate degenerative changes medial and patellofemoral compartments. There is moderate periarticular enthesophytosis but no loose bodies. Electronically signed by: Ambrocio Woodward MD 01/25/2025 08:24 AM EDT
[2025-01-25 06:25] VITALS: BP 168/90; PULSE 100; RESP 16; TEMP 36.6; O2SAT 100; BMI 28.6
--- NOTE | 2025-01-25 07:23 | ED_ITS ---
HPI - Extremity Injury (Lower) General Chief Complaint: Extremity Injury, Lower Stated Complaint: bilateral leg pain Time Seen by Provider: 01/25/25 07:22 Source: patient, RN notes reviewed and care team assistant Limitations: language barrier History of Present Illness ED Provider: Nazia Dhaliwal PA-C HPI Narrative: This is a 69-year-old Welsh-speaking female, with a history of asthma, hypertension, type 2 diabetes, who presents emergency department with complaints of bilateral knee pain x3 months. Patient was seen at the [place] orthopedic office on January 10, 2023, where she had injection of her knee. She was told that you can follow-up as needed or at least 4 months for repeat injection. She states that over the last several months she has had worsening pain. No recent trauma, injury, heavy lifting or falls. No calf tenderness. Patient reports that she called the orthopedic office however is unable to be seen until April or May of this year. She has been taking bykc-[id number] pain modalities with minimal relief. Pain worsens with weight-bearing. No other complaints or concerns at this time. MD complaint: knee injury Onset (ago): month(s) Other symptoms: none Related Data Home Medications ?Medication ?Instructions ?Recorded ?Confirmed amlodipine 10 mg tablet 10 mg PO DAILY 10/18/20 10/18/20 aspirin 81 mg tablet,delayed 81 mg PO QAM 10/18/20 10/18/20 release baclofen 10 mg tablet 10 mg PO DAILY 10/18/20 10/18/20 citalopram 20 mg tablet 20 mg PO BEDTIME 10/18/20 10/18/20 docusate sodium 100 mg capsule 100 mg PO BID 10/18/20 10/18/20 fluticasone furoate 50 inhalation 10/18/20 10/18/20 mcg/actuation blister powder for inhalation hydroxyzine HCl 25 mg tablet 25 mg PO TID PRN anxiety 10/18/20 10/18/20 lancets 33 gauge #100 ea 10/18/20 10/18/20 meloxicam 7.5 mg tablet 7.5 mg PO BID 10/18/20 10/18/20 multivitamin 1 tab PO QAM 10/18/20 10/18/20 omega-3 fatty acids-fish oil 340 1 cap PO BID 10/18/20 10/18/20 mg-1,000 mg capsule omeprazole 20 mg capsule,delayed 20 mg PO QAM 10/18/20 10/18/20 release paroxetine HCl 10 mg tablet (Paxil) 10 mg PO DAILY 10/18/20 10/18/20 rosuvastatin 20 mg tablet 20 mg PO BEDTIME 10/18/20 10/18/20 trazodone 300 mg tablet 300 mg PO BEDTIME 10/18/20 10/18/20 valsartan 320 mg tablet 320 mg PO DAILY 10/18/20 10/18/20 Previous Rx's ?Medication ?Instructions ?Recorded hydrocodone 5 mg-acetaminophen 325 1 tab PO Q6H PRN pain #12 tabs 02/25/21 mg tablet lidocaine 4 % topical patch 1 patch topical DAILY PRN pain #10 02/25/21 ea cane #1 ea 05/13/22 ibuprofen 400 mg tablet 400 mg PO Q8H PRN pain #30 tabs 08/25/22 acetaminophen 500 mg tablet 500 mg PO Q6H PRN fever or pain 01/05/23 (Tylenol Extra Strength) #14 tabs diclofenac sodium 1 % topical gel 4 g topical QID #100 grams 01/05/23 (Arthritis Pain (diclofenac)) naproxen 500 mg tablet 500 mg PO BID PRN pain 10 days #20 01/05/23 tabs naproxen 500 mg tablet 500 mg PO BID 7 days #14 tabs 10/19/23 prednisone 20 mg tablet 20 mg PO DAILY 7 days #7 tabs 10/19/23 acetaminophen 500 mg tablet 500 mg PO Q6H PRN pain #30 tabs 01/25/25 (Tylenol Extra Strength) ibuprofen 600 mg tablet 600 mg PO Q6H PRN pain #30 tabs 01/25/25 Allergies Allergy/AdvReac Type Severity Reaction Status Date / Time penicillin V Allergy Unknown swelling Verified 01/25/25 06:33 Penicillins Allergy Unknown RASH,SWELLI Verified 01/25/25 06:33 NG PMF Past Medical History Medical History Hypertension Asthma Type 2 diabetes mellitus Rotator cuff impingement syndrome of right shoulder Unilateral primary osteoarthritis, left knee Surgical History History of hernia repair History of carpal tunnel release Family History Family History Mother No problems noted. Father No problems noted. Social History Social History Alcohol intake: current Alcohol intake frequency: holidays/special occasions only Smoked in Last 30 Days: No Use of substances other than those prescribed or required for medical reasons: No Advance Directives: No Advance Directives Information Provided: Yes Do you have a plan to hurt others: No Plan Current occupational status: disabled Current occupation: Right Handed Physical Exam Vital Signs: Vital Signs: Last Vital Signs Temp 97.8 F 01/25/25 06:25 Pulse 100 01/25/25 06:25 Resp 16 01/25/25 06:25 BP 168/90 H 01/25/25 06:25 Pulse Ox 100 01/25/25 06:25 O2 Del Method Room Air 01/25/25 06:25 BMI result Body Mass Index 28.6 Const: Other: General: Awake, alert, and oriented X3. No acute distress. HEENT: Normal inspection CVS: Normal heart rate and rhythm. Pulses normal. Respiratory: No respiratory distress Skin: Warm, dry, no rashes noted to exposed skin. Normal skin color. Normal skin turgor. Extremities: Bilateral knees with diffuse tenderness throughout bilateral knees, no overlying skin changes, erythema or warmth. DP pulse are 2+. Legs are well perfused, no calf tenderness. Neuro: Oriented X 3. No motor deficit. No sensory deficit. Course Reevaluation(s) Reevaluation #1: X-rays return, revealing degenerative changes, patient re-evaluated, feeling much better after receiving Tylenol dosing. Encouraged patient to call orthopedic office today to see if they can see her sooner. Given strict return precautions. She understands and agrees with plan. Patient stable for discharge. Time: 09:32 Medications Administered Discontinued Medications Generic Name Dose Route Start Last Admin Trade Name Freq PRN Reason Stop Dose Admin Acetaminophen 975 mg 01/25/25 07:51 01/25/25 08:19 Acetaminophen 325 Mg Tablet PO 01/25/25 07:52 975 mg ONCE ONE Administration Medical Decision Making Medical Decision Making MDM Narrative: This is a 69-year-old Welsh-speaking female who presents emergency department with complaints of bilateral knee pain which started 3 months ago. Of note, patient has been seen here multiple times for similar complaints. No recent trauma or injury. No falls. She was ambulatory. Patient with te nderness palpation throughout bilateral knee joints, will obtain repeat x-rays as patient has not had x-rays in very year. Discussed with patient that she needs to follow-up with the orthopedic office, she states that she called the office however she was unable to be seen for 3 months. Will medicate with Tylenol by mouth. Differential Diagnosis Differential Diagnoses: The differential diagnosis associated with the presentation includes osteoarthritis, ligamentous derangement, chronic knee pain, fracture -unlikely Radiology Impression Discussion of test interpretation with radiology: I have reviewed the radiologist's reading. Radiologist Impression: EXAMINATION: XR KNEE, RIGHT CLINICAL INFORMATION: pain, hx of osteoarthritis COMPARISON: None available. TECHNIQUE: Four views of the right knee. FINDINGS: There is moderate reduction in the medial and patellofemoral compartment joint space with periarticular spurring. No visible fracture, dislocation or loose bodies seen. There is no joint effusion noted. The soft tissues are normal. XR/XR knee RT 4V IMPRESSION: Moderate degenerative changes medial and patellofemoral compartments. There is moderate periarticular enthesophytosis but no loose bodies. Electronically signed by: Ambrocio Woodward MD 01/25/2025 08:24 AM EDT RP Dictated By: Ambrocio Woodward MD EXAMINATION: XR KNEE, LEFT CLINICAL INFORMATION: pain, hx of osteoarthritis COMPARISON: Bilateral AP knee standing TECHNIQUE: Four views of the left knee. FINDINGS: There is moderate loss of medial and patellofemoral compartment joint space with significant periarticular osteophytosis. No visible fracture, loose bodies or joint effusion seen. No lytic process. XR/XR knee LT 4V IMPRESSION: Advanced osteoarthritis changes medial and patellofemoral compartments with osteophytosis. Electronically signed by: Ambrocio Woodward MD 01/25/2025 08:25 AM EDT RP Dictated By: Ambrocio Woodward MD Discharge Plan Discharge Clinical Impression: Osteoarthritis Instructions: Osteoarthritis (ED) Additional Instructions: You were seen in the emergency department due to bilateral knee pain. I have attached the x-ray report to this discharge paperwork. You have significant arthritis which is causing you to have this pain. Please alternate between ibuprofen and or Tylenol as needed for pain and symptoms. Gentle stretching, and range of motion can help. You need to follow-up with the orthopedic cast specialist, call today to make an appointment. They may be able to move up your appointment sooner. If any new or worsening symptoms occur including but not limited to severe chest pain, shortness of breath, please seek emergent care. XR/XR knee RT 4V IMPRESSION: Moderate degenerative changes medial and patellofemoral compartments. There is moderate periarticular enthesophytosis but no loose bodies. XR/XR knee LT 4V IMPRESSION: Advanced osteoarthritis changes medial and patellofemoral compartments with osteophytosis. Prescriptions: New acetaminophen [Tylenol Extra Strength] 500 mg tablet 500 mg PO Q6H PRN (Reason: pain) Qty: 30 0RF ibuprofen 600 mg tablet 600 mg PO Q6H PRN (Reason: pain) Qty: 30 0RF No Action lidocaine 4 % adhesive patch,medicated 1 patch topical DAILY PRN (Reason: pain) Qty: 10 0RF Rx Instructions: may leave on for up to 12 hrs hydrocodone-acetaminophen 5-325 mg tablet 1 tab PO Q6H PRN (Reason: pain) Qty: 12 0RF (DME) cane Device See Rx Instructions .Route Qty: 1 0RF Rx Instructions: As directed ibuprofen 400 mg tablet 400 mg PO Q8H PRN (Reason: pain) Qty: 30 0RF diclofenac sodium [Arthritis Pain (diclofenac)] 1 % gel 4 g topical QID Qty: 100 0RF Rx Instructions: apply to single knee, ankle, foot; for foot includes sole/toes/top of foot acetaminophen [Tylenol Extra Strength] 500 mg tablet 500 mg PO Q6H PRN (Reason: fever or pain) Qty: 14 0RF naproxen 500 mg tablet 500 mg PO BID PRN (Reason: pain) 10 Days Qty: 20 0RF prednisone 20 mg tablet 20 mg PO DAILY 7 Days Qty: 7 0RF naproxen 500 mg tablet 500 mg PO BID 7 Days Qty: 14 0RF trazodone 300 mg tablet 300 mg PO BEDTIME (DME) lancets 33 gauge misc See Rx Instructions .ROUTE .MEDSUPPLY Qty: 100 Rx Instructions: As directed Fish Oil 340-1,000 mg capsule 1 cap PO BID rosuvastatin 20 mg tablet 20 mg PO BEDTIME docusate sodium 100 mg capsule 100 mg PO BID citalopram 20 mg tablet 20 mg PO BEDTIME aspirin 81 mg tablet,delayed release (DR/EC) 81 mg PO QAM amlodipine 10 mg tablet 10 mg PO DAILY hydroxyzine HCl 25 mg tablet 25 mg PO TID PRN (Reason: anxiety) meloxicam 7.5 mg tablet 7.5 mg PO BID omeprazole 20 mg capsule,delayed release(DR/EC) 20 mg PO QAM multivitamin Tablet 1 tab PO QAM baclofen 10 mg tablet 10 mg PO DAILY valsartan 320 mg tablet 320 mg PO DAILY paroxetine HCl [Paxil] 10 mg tablet 10 mg PO DAILY fluticasone furoate 50 mcg/actuation blister with device inhalation Referrals: [facility] [Provider Group] Print Language: Welsh
--- NOTE | 2025-01-25 08:03 | PC.NURSE ---
pt to xray at this time.
[2025-01-25] MEDS: Acetaminophen 325 MG TABLET 975 MG PO (08:19)
[2025-01-25 10:33] VITALS: BP 158/84; PULSE 77; RESP 16; TEMP 36.9; O2SAT 99
[2025-01-25 10:37] VITALS: BP 158/84; PULSE 77; RESP 16; TEMP 36.9; O2SAT 99
== END 2025-01-25 10:37 | disposition home or self-care (01) ==
PROVIDERS: Emergency Provider Emergency Medicine Emergency Medical Services; PCP Nurse Practitioner Family
DX: M17.0 Bilateral primary osteoarthritis of knee (principal); M25.562 Pain in left knee; M25.561 Pain in right knee; M79.604 Pain in right leg; E11.9 Type 2 diabetes mellitus without complications; I10 Essential (primary) hypertension; Z79.899 Other long term (current) drug therapy
CPT/HCPCS: 73564; 99283; 99284

== ENCOUNTER → 2025-01-25 07:52 | Outpatient (BNV) | payer OTHER, SELFPAY | PROVIDERS: Emergency Provider Emergency Medicine Emergency Medical Services; PCP Nurse Practitioner Family; Visit Provider Radiology Diagnostic Radiology | DX: M17.0 Bilateral primary osteoarthritis of knee (principal) | CPT/HCPCS: 73564 ==

== ENCOUNTER 2025-10-06 13:54 | Outpatient (REF) | payer OTHER, SELFPAY ==
--- OUTSIDE RECORDS SUMMARY | 2025-10-05 10:30 | XMS_ITS | Encounter Summary ---
Author Organization [employer] Address [address] [facility] 7t [place] [address] Care Team Providers Care Pedodontist Name Role Phone Annette Nicole NP Primary Care Provider [phone] Reason for Visit * Reason Comments Annual Exam Encounter Details Date Type Department Care Team (Latest Contact Info) Description 10/05/2025 10:30 AM EST Office Visit [facility] [address] [place] [address] Evelia Granado FNP [address] [place], [place] [phone] Mixed hyperlipidemia (Primary Dx); Type 2 diabetes mellitus with other diabetic kidney complication, without long-term current use of insulin (HCC); Osteoarthritis of both knees, unspecified osteoarthritis type; Encounter for immunization Social History Tobacco Use Types Packs/Day Years Used Date Smoking Tobacco: Every Day Cigarettes Passive Smoke Exposure: Current Smokeless Tobacco: Never Comments:Started smoking at age 17, quit smoking x 3 years and restarted. Reports has cut down and currently smoking 0.25 - 0.5 ppd Alcohol Use Standard Drinks/Week Comments Not Asked 0 (1 standard drink = 0.6 oz pur e alcohol) occasional Alcohol Answer Date Recorded How often do you have a drink containing alcohol ? 0 10/05/2025 How many drinks containing a lcohol do you have on a typical day when you are drinking? 0 10/05/2025 How often do you have six or more drinks on one occasion? 0 10/05/2025 Depression Answer Date Recorded Patient Health Questionnaire-9 Score 0 10/05/2025 Patient Health Questionnaire-9 Score 0 10/05/2025 Last PHQ-9: Questionnaire Data Not on file 1 12/05/2024 Housing Stability Answer Date Recorded What is your housing situation today? I have azucena sheth 09/28/[address] you li ve. Do you have problems with any of the following? None of the above 09/28/2025 Food Insecurity Answer Date Recorded Within the past 12 months, y ou worried that your food would run out before you got money to buy more: Never True 09/28/2025 Within the past 12 months,th e food you bought just didn't last and you didn't have enough money to get more: Never True Transportation Answer Date Recorded In the past 12 months, has l ack of transportation kept you from medical appts, meetings, work or from getting things needed for daily living? No 09/28/2025 Utilities Answer Date Recorded In the past 12 months, has t he electric, gas, oil or water company threatened to shut off services in your home? No 09/28/2025 Depression Answer Date Recorded Patient Health Questionnaire-2 Score 0 10/05/2025 Internet Access Answer Date Recorded Internet Access Q1 Yes 09/28/2025 Internet Access Q2 Not on file 09/28/2025 Comments No Sex and Gender Information Value Date Recorded Sex Assigned at Female 09/10/2022 10:14 AM EDT Legal Sex Female 10:14 AM EDT Gender Identity Female 09/10/2022 10:14 AM EDT Sexual Orientation Choose not to disclose 2021 10:14 AM EDT documented as of this encounter Last Filed Vital Signs Vital Sign Reading Time Taken Comments Blood Pressure 139/89 10/05/2025 10:06 AM EST Pulse 95 10/05/2025 10:06 AM EST Temperature 36.4 C (97.6 F) 10/05/2025 10:06 AM EST Respiratory Rate 15 10/05/2025 10:06 AM EST Oxygen Saturation 99% 10/05/2025 10:06 AM EST Inhaled Oxygen Concentration - - Weight 74 kg (163 lb 3.2 oz) 10/05/2025 10:06 AM EST Height 165.1 cm (5' 5 ) 10/05/2025 10:06 AM EST Body Mass Index 27.16 10/05/2025 10:06 AM EST documented in this encounter Functional Status * Over the past 2 weeks, how often have you been bothered by any of the following problems? Question Answer Date of Assessment Author Patient Health Questionnaire -2 Score 0 10/05/2025 10:07 AM Cj Davila [place] * Little interest or pleasure in doing things Answer Date of Assessment Author Not at all 10/05/2025 10:07 AM Cj Davila MA * Feeling down, depressed, or hopeless Answer Date of Assessment Author Not at all 10/05/2025 10:07 AM Cj Davila MA * Trouble falling or staying asleep, or sleeping too much Answer Date of Assessment Author Not at all 10/05/2025 10:07 AM Cj Davila MA * Feeling tired or having little energy Answer Date of Assessment Author Not at all 10/05/2025 10:07 AM Cj Davila MA * Poor appetite or overeating Answer Date of Assessment Author Not at all 10/05/2025 10:07 AM Cj Davila MA * Feeling bad about yourself - or that you are a failure or have let yourself or your family down Answer Date of Assessment Author Not at all 10/05/2025 10:07 AM Cj Davila MA * Trouble concentrating on things, such as reading the newspaper or watching television Answer Date of Assessment Author Not at all 10/05/2025 10:07 AM Cj Davila MA * Moving or speaking so slowly that other people could have noticed? Or the opposite - being so fidgety or restless that you have been moving around a lot more than usual. Answer Date of Assessment Author Not at all 10/05/2025 10:07 AM Cj Davila MA * Thoughts that you would be better off or hurting yourself in some way Answer Date of Assessment Author Not at all 10/05/2025 10:07 AM Cj Davila MA * Patient Health Questionnaire-9 Score Answer Date of Assessment Author 0 10/05/2025 10:07 AM Cj Davila MA * Over the last 2 weeks, how often have you been bothered by any of the following problems? Question Answer Date of Assessment Author Feeling nervous, anxious, or on edge 0 10/05/2025 10:07 AM Cj Davila MA Not being able to stop or co ntrol worrying 0 10/05/2025 10:07 AM Cj Davila MA Worrying too much about diff erent things 0 10/05/2025 10:07 AM Cj Davila MA Trouble relaxing 0 10/05/2025 10:07 AM Cj Davila MA Being so restless that it is hard to sit still 0 10/05/2025 10:07 AM Cj Davila MA Becoming easily annoyed or irritable 0 10/05/2025 10:07 AM Cj Davila MA Feeling afraid as if somethi ng awful might happen 0 10/05/2025 10:07 AM Cj Davila MA YESIKA-7 Total Score 0 10/05/2025 10:07 AM Cj Davila MA documented as of this encounter Plan of Treatment Scheduled Orders Name Type Priority Associated Diagnoses Orde r Schedule Hepatitis C Antibody with Reflex to HCV, RNA, Quantitative, Real-Time PCR Lab Routine Mixed hyperlipidemia Expected: 10/05/2025, Expires: 10/05/2026 documented as of this encounter Procedures Procedure Name Priority Date/Time Associated Diagnosis Comments LIPID PANEL, STANDARD Routine 10/06/2025 2:03 PM EST Mixed hyperlipidemia COMPREHENSIVE METABOLIC PANEL Routine 10/06/2025 2:03 PM EST Mixed hyperlipidemia POCT GLYCATED HEMOGLOBIN, TOTAL Routine 10/05/2025 10:05 AM EST Type 2 diabetes mellitus with other diabetic kidney complication, without long-term current use of insulin (HCC) POCT GLUCOSE Routine 10/05/2025 10:05 AM EST Type 2 diabetes mellitus with other diabetic kidney complication, without long-term current use of insulin (HCC) documented in this encounter Results * (ABNORMAL) Comprehensive Metabolic Panel (10/06/2025 2:03 PM EST) Sodium 142 135 - 145 mmol/L [facility] Potassium 3.8 3.3 - 5.1 mmol/L [facility] Chloride 105 96 - 108 mmol/L [facility] Carbon Dioxide 29 22 - 29 mmol/L [facility] Anion Gap 12 12 - 20 [facility] Urea Nitrogen (BUN) 21(H) 9 - 16 mg/dL [facility] Creatinine, Serum 0.94 0.5 - 1.4 mg/dL [facility] Estimated Glomerular Filt Rate 59 [facility] Comment:Chronic Kidney Disea se: Estimated GFR < 60 mL/min/1.54g6Ffypdt Kidney Disease: Estimated GFR < 15 mL/min/1.73m2 Glucose 94 60 - 115 mg/dL [facility] Calcium 9.9 8.4 - 10.2 mg/dL [facility] Bilirubin, Total 0.1 0.0 - 1.0 mg/dL [facility] Aspartate Amino Transferase 23 5 - 31 U/L [facility] Alanine Aminotransferase 12 0 - 31 U/L [facility] Total Protein 7.3 6.5 - 8.0 g/dL [facility] Albumin Level 4.3 3.5 - 5.0 g/dL [facility] Alkaline Phosphatase 122(H) 39 - 117 U/L [facility] Blood Venous blood specimen / Unknown 10/06/2025 2:03 PM EST 10/06/2025 4:22 PM EST us Eveliarani Granado RN [facility] LAB BLOOD ORDERABLES Final Res ult [facility] [address] [place] [phone] * (ABNORMAL) Lipid Panel, Standard (10/06/2025 2:03 PM EST) Triglycerides 305(H) <150 mg/dL [facility] Comment:Desirable Triglyceri de: less than 150 mg/dLBorderline High Triglyceride 150-199 mg/dLHigh Triglyceride: 200-499 mg/dLVery High Triglyceride: greater than or equal to 5OO mg/dL Cholesterol 261(H) <200 mg/dL [facility] Comment:Desirable Cholestero l: less than 200 mg/dLBorderline High Cholesterol: 200-239 mg/dLHigh Cholesterol: greater than 239 mg/dL LDL Cholesterol Calculated 162(H) <100 mg/dL [facility] Comment:Desirable LDL: less than 100 mg/dLNear Optimal/Above Optimal LDL: 110- 129 mg/dLBorderline High LDL: 130-159 mg/dLHigh LDL: 160-189 mg/dLVery High LDL: greater than or equal to 190 mg/dL HDL Cholesterol 38(L) >40 mg/dL [facility] Comment:Desirable HDL: great er than 40 mg/dL Note: This HDL assay may give artificially low results in patients with liver disease. Blood Venous blood specimen / Unknown 10/06/2025 2:03 PM EST 10/06/2025 4:22 PM EST [employer] [facility] LAB BLOOD ORDERABLES Final Res ult [facility] [address] [place] [phone] * POCT Glucose (10/05/2025 10:05 AM EST) Glucose Blood, POC 92 60 - 200 mg/dL Comment:[employer] Lot # [id number] Lot# Expiration Date [id number] Blood Capillary blood specimen / Unknown 10/05/2025 10:05 AM EST [employer] POINT OF CARE TEST ENTER/EDIT ORDERABLES Final Result * POCT Hgb A1c (10/05/2025 10:05 AM EST) Hemoglobin A1C 5.6 4.0 - 5.7 % QC Media Lot # [id number] Lot# Expiration Date [id number] Blood 10/05/2025 10:0 5 AM EST Evelia Granado RN [facility] POINT OF CARE TEST ENTER/EDIT ORDERABLES Final Result documented in this encounter Visit Diagnoses Diagnosis Mixed hyperlipidemia- Primary Type 2 diabetes mellitus with other diabetic kidney complication, without long- term current use of insulin (HCC) Osteoarthritis of both knees, unspecified osteoarthritis type Encounter for immunization documented in this encounter Additional Health Concerns Assessment Noted Time PHQ-9 Depression Total Score: 0 10/05/20 10:07 AM EST documented as of this encounter Care Teams Pedodontist Relationship Specialty Start Date End Date Annette Nicole NP [address] [place] [address] PCP - General Family Medicine 07/14/24 documented as of this encounter
[2025-10-06 16:47] LABS: Alanine Aminotransferase 12 U/L (0-31); Albumin Level 4.3 g/dL (3.5-5.0); Alkaline Phosphatase 122 U/L (39-117); Anion Gap 12 (12-20); Aspartate Amino Transferase 23 U/L (5-31); Blood Urea Nitrogen 21 mg/dL (9-16); Calcium 9.9 mg/dL (8.4-10.2); Carbon Dioxide 29 mmol/L (22-29); Chloride 105 mmol/L (96-108); Cholesterol 261 mg/dL (<200); Estimated Glomerular Filt Rate 59; HDL Cholesterol 38 mg/dL (>40); Potassium 3.8 mmol/L (3.3-5.1); Sodium 142 mmol/L (135-145); Total Protein 7.3 g/dL (6.5-8.0); Triglycerides 305 mg/dL (<150)
--- OUTSIDE RECORDS SUMMARY | 2025-10-06 16:56 | XMS_ITS | Encounter Summary ---
Author Organization [employer] Address [address] [facility] [address] 7[address] [place] [address] Care Team Providers Care Ocean Freight Manager Name Role Phone Ngoc NolanP Primary Care Provider [phone] Annette Nicole NP Primary Care Provider [phone] Encounter Details Date Type Department Care Team ([facility] st Contact Info) Description 08/22/2023 Telephone [facility] [address] [place] [address] Ngoc Nolan FNP [address] [place] [address] Social History Tobacco Use Types Packs/Day Years Used Date Smoking Tobacco: Every Day Cigarettes Smokeless Tobacco: Never Depression Answer Date Recorded Patient Health Questionnaire-9 Score 0 04/26/2023 Housing Stability Answer Date Recorded What is your housing situation today? I have azucena sheth 08/17/[address] you li ve. Do you have problems with any of the following? None of the above 08/17/2023 Food Insecurity Answer Date Recorded Within the past 12 months, y ou worried that your food would run out before you got money to buy more: Never True 08/17/2023 Within the past 12 months,th e food you bought just didn't last and you didn't have enough money to get more: Never True 05/2023 Transportation Answer Date Recorded In the past 12 months, has l ack of transportation kept you from medical appts, meetings, work or from getting things needed for daily living? No 08/17/2023 Utilities Answer Date Recorded In the past 12 months, has t he electric, gas, oil or water Po[employer] threatened to shut off services in your home? No 08/17/2023 Depression Answer Date Recorded Patient Health Questionnaire-2 Score 0 04/26/2023 Comments Unknown Sex and Gender Information Value Date Recorded Sex Assigned at Female 09/10/2022 10:14 AM EDT Legal Sex Female 10:14 AM EDT Gender Identity Female 09/10/2022 10:14 AM EDT Sexual Orientation Choose not to disclose 2021 10:14 AM EDT documented as of this encounter Plan of Treatment Not on file documented as of this encounter Visit Diagnoses Not on filedocumented in this encounter Additional Health Concerns Assessment Noted Time PHQ-9 Depression Total Score: 0 04/26/20 23 10:27 AM EDT documented as of this encounter Care Teams Ocean Freight Manager Relationship Specialty Start Date End Date Ngoc Nolan FNP [address] [place] [address] PCP - General Family Medicine 08/17/22 07/13/24 Annette Nicole NP [address] [place] [address] PCP - General Family Medicine 07/14/24 documented as of this encounter
--- OUTSIDE RECORDS SUMMARY | 2025-10-06 16:56 | XMS_ITS | Encounter Summary ---
Author Organization [employer] Address [address] [facility] [address] 7[address] [place] [address] Care Team Providers Care Associate Technician Name Role Phone Ngoc Nolan PHOTOGRAPHIC PROCESS SCREEN MAKER Primary Care Provider [phone] Annette Nicole NP Primary Care Provider [phone] Encounter Details Date Type Department Care Team (Late st Contact Info) Description 12/17/2023 Telephone [facility] PEDS [address] [place], [place] [phone] Radha Krishnan LPN Social History Tobacco Use Types Packs/Day Years Used Date Smoking Tobacco: Every Day Cigarettes Smokeless Tobacco: Never Depression Answer Date Recorded Patient Health Questionnaire-9 Score 0 04/26/2023 Housing Stability Answer Date Recorded What is your housing situation today? I have azucena sheth 08/27/[address] you li ve. Do you have problems with any of the following? None of the above 08/27/2023 Food Insecurity Answer Date Recorded Within the past 12 months, y ou worried that your food would run out before you got money to buy more: Never True 08/27/2023 Within the past 12 months,th e food you bought just didn't last and you didn't have enough money to get more: Never True Transportation Answer Date Recorded In the past 12 months, has l ack of transportation kept you from medical appts, meetings, work or from getting things needed for daily living? No 08/27/2023 Utilities Answer Date Recorded In the past 12 months, has t he electric, gas, oil or water company threatened to shut off services in your home? No 08/27/2023 Depression Answer Date Recorded Patient Health Questionnaire-2 [...] Time PHQ-9 Depression Total Score: 0 04/26/20 10:27 AM EDT documented as of this encounter Care Teams Associate Technician Relationship Specialty Start Date End Date Ngoc Nolan FNP [address] [place] [address] PCP - General Family Medicine 08/17/22 07/13/24 Annette Nicole NP [address] [place] [address] PCP - General Family Medicine 07/14/24 documented as of this encounter
--- OUTSIDE RECORDS SUMMARY | 2025-10-06 16:56 | XMS_ITS | Encounter Summary ---
Author Organization [employer] Address [address] [facility] 7[address] [place] [address] Care Team Providers Care Chief Of Staff Name Role Phone AndreaAnnette drake JOSE Primary Care Provider [phone] Encounter Details Date Type Department Care Team (Latest Contact Info) Description 10/05/2025 Travel Social History Tobacco Use Types Packs/Day Years [...] AM EDT documented as of this encounter Functional Status * Over the [...] Author Not at all 10/05/2025 10:07 AM jC Davila [place] * Trouble concentrating on things, [...] Time PHQ-9 Depression Total Score: 0 10/05/20 25 10:07 AM EST documented as of this encounter Care Teams Chief Of Staff Relationship Specialty Start Date End Date Annette Nicole NP [address] [place] [address] PCP - General Family Medicine 07/14/24 documented as of this encounter
--- OUTSIDE RECORDS SUMMARY | 2025-10-06 16:56 | XMS_ITS | Encounter Summary ---
Author Organization [employer] Address [address] [facility] 7t [place] [address] Care Team Providers Care Fire Code Inspector Name Role Phone Ngoc NolanP Primary Care Provider [phone] Annette Nicole NP Primary Care Provider [phone] Encounter Details Date Type Department Care Team (Late st Contact Info) Description 04/25/2023 Abstract [facility] [address] [place] [address] Ngoc Nolan FNP [address] [place] [address] Social History Tobacco Use Types Packs/Day Years Used Date Smoking Tobacco: Every Day Cigarettes Smokeless Tobacco: Never Depression Answer Date Recorded Patient Health Questionnaire-9 Score 0 04/26/2023 Depression Answer Date Recorded Patient Health Questionnaire-2 Score 0 04/26/2023 Comments Unknown Sex and Gender Information Value Date Recorded Sex Assigned at Female 09/10/2022 10:14 AM EDT Legal Sex Female 10:14 AM EDT Gender Identity Female 09/10/2022 10:14 AM EDT Sexual Orientation Choose not to disclose 2021 10:14 AM EDT COVID-19 Exposure Response Date Recorded In the last 10 days, have yo u been in contact with someone who was confirmed or suspected to have Coronavirus/COVID-19? No / Unsure 04/26/2023 9:26 AM EDT documented as of this encounter Functional Status * Over the past 2 weeks, how often have you been bothered by any of the following problems? Question Answer Date of Assessment Author Patient Health Questionnaire-2 Score 0 04/11 10:27 AM Brea Galo * Over the past 2 weeks, how often have you been bothered by any of the following problems? Question Answer Date of Assessment Author Little interest or pleasure in doing things Not at all 04/26/2023 10:27 AM Brea Galo Feeling down, depressed, or hopeless Not at all 04/11 10:27 AM Brea Galo Trouble falling or staying a sleep, or sleeping too much Not at all 04/26/2023 10:27 AM EDBrea Rodriguez Feeling tired or having stuart le energy Not at all 04/26/2023 10:27 AM Brea Galo Poor appetite or overeating Not at all 04/26/2023 10 :27 AM Brea Galo Feeling bad about yourself - or that you are a failure or have let yourself or your family down Not at all 04/26/2023 10:27 AM Shawanda Galo Trouble concentrating on thi ngs, such as reading the newspaper or watching television Not at all 04/26/2023 10:27 AM Brea Galo Moving or speaking so slowly that other people could have noticed? Or the opposite - being so fidgety or restless that you have been moving around a lot more than usual. Not at all 04/26/2023 10:27 AM Brea Galo Thoughts that you would be b daphne off or hurting yourself in some way Not at all 04/26/2023 10:27 AM Brea Galo Patient Health Questionnaire-9 Score 0 04/11 10:27 AM Brea Galo documented as of this encounter Plan of Treatment Not on file documented as of this encounter Procedures Procedure Name Priority Date/Time Associated Diagnosis Comments COLONOSCOPY Routine 02/23/2014 9:58 AM EDT documented in this encounter Results * Colonoscopy (02/23/2014 9:58 AM EDT) Colonoscopy Normal Normal Narrative Nila Cole - 02/23/2014 9:58 AM EDT Recommended 5 year follow up per provider notes path result were not available for upload us Historical Provider HEALTH MAINTENANCE Edited Result - Final documented in this encounter Visit Diagnoses Not on filedocumented in this encounter Care Teams Fire Code Inspector Relationship Specialty Start Date End Date Ngoc Nolan FNP [address] [place] [address] PCP - General Family Medicine 08/17/22 07/13/24 Annette Nicole NP [address] [place] [address] PCP - General Family Medicine 07/14/24 documented as of this encounter
--- OUTSIDE RECORDS SUMMARY | 2025-10-06 16:56 | XMS_ITS | Encounter Summary ---
Author Organization [employer] Address [address] [facility] 7t [place] [address] Care Team Providers Care Production Operations Manager Name Role Phone Ngoc Nolan Primary Care Provider [phone] Annette Nicole NP Primary Care Provider [phone] Encounter Details Date Type Department Care Team (Late st Contact Info) Description 02/21/2023 Orders Only [facility] MED & PEDS [address] [place] [address] Nadya Jiménez LPN Social History Tobacco Use Types Packs/Day Years Used Date Smoking Tobacco: Every Day Cigarettes Smokeless Tobacco: Never Comments Unknown Sex and Gender Information Value [...] on filedocumented in this encounter Care Teams Production Operations Manager Relationship Specialty Start Date End Date Ngoc Nolan FNP [address] [place] [address] PCP - General Family Medicine 08/17/22 07/13/24 Annette Nicole NP [address] [place] [address] PCP - General Family Medicine 07/14/24 documented as of this encounter
--- OUTSIDE RECORDS SUMMARY | 2025-10-06 16:56 | XMS_ITS | Encounter Summary ---
Author Organization [employer] Address [address] [facility] 7[address] [place] [address] Care Team Providers Care Receiving Associate Name Role Phone Ngoc Nolan Primary Care Provider [phone] Annette Nicole NP Primary Care Provider [phone] Encounter Details Date Type Department Care Team (Late st Contact Info) Description 02/18/2023 Orders Only [facility] MEDICINE [address] [place] [phone] Bailee Corona LPN Social History Tobacco Use Types Packs/Day [...] on filedocumented in this encounter Care Teams Receiving Associate Relationship Specialty Start Date End Date Ngoc Nolan FNP [address] [place] [phone] PCP - General Family Medicine 08/17/22 07/13/24 Annette Nicole NP [address] [place] [address] PCP - General Family Medicine 07/14/24 documented as of this encounter
--- OUTSIDE RECORDS SUMMARY | 2025-10-06 16:56 | XMS_ITS | Encounter Summary ---
Author Organization [employer] Address [address] [facility] [address] [place] [address] Care Team Providers Care Alarm Operator Name Role Phone Ngoc Nolan Primary Care Provider [phone] Annette Nicole NP Primary Care Provider [phone] Reason for Referral * Imaging (Routine) - Closed Specialty Diagnoses / Procedures Referred By Contac t Referred To Contact Radiology Diagnoses Osteopenia after menopause Procedures BD DEXA Axial Ngoc Nolan FNP [address] [place] [address] Phone: tel: fax: [address] [phone] Phone: tel: fax: Referral ID Status Reason Start Date Expiration Date Visits Re quested Visits Authorized [id number] Closed 07/13/2024 07/13/2025 1 1 Encounter Details Date Type Department Care Team (Late st Contact Info) Description 07/13/2024 Orders Only [facility] [address] [place] [address] Ngoc Nolan FNP [address] [place] [address] Osteopenia after menopause (Primary Dx) Social History Tobacco Use Types Packs/Day Years Used Date Smoking Tobacco: Every Day Cigarettes Smokeless Tobacco: Never Comments:Started smoking at age 17, quit smoking x 3 years and restarted. Reports has cut down and currently smoking 0.25 - 0.5 ppd Alcohol Use Standard Drinks/Week Comments Not Asked 0 (1 standard drink = 0.6 oz pur e alcohol) occasional Depression Answer Date Recorded Patient Health Questionnaire-9 Score 0 03/02/2024 Patient Health Questionnaire-9 Score 0 03/02/2024 Last PHQ-9: Questionnaire Data Not on file 0 03/02/2024 Housing Stability Answer Date Recorded What is [...] Date Recorded Patient Health Questionnaire-2 Score 0 03/02/2024 Comments No Sex and Gender Information Value Date Recorded Sex Assigned at Female 09/10/2022 10:14 AM EDT Legal Sex Female 10:14 AM EDT Gender Identity Female 09/10/2022 10:14 AM EDT Sexual Orientation Choose not to disclose 2021 10:14 AM EDT documented as of this encounter Plan of Treatment Scheduled Orders Name Type Priority Associated Diagnoses Orde r Schedule BD DEXA Axial Imaging Routine Osteopenia after menopause Expected: 07/13/2024, Expires: 07/13/2025 documented as of this encounter Visit Diagnoses Diagnosis Osteopenia after menopause- Primary documented in this encounter Additional Health Concerns Assessment Noted Time PHQ-9 Depression Total Score: 0 03/02/20 24 9:32 AM EDT documented as of this encounter Care Teams Alarm Operator Relationship Specialty Start Date End Date Ngoc Nolan FNP [address] [place] [address] PCP - General Family Medicine 08/17/22 07/13/24 Annette Nicole NP [address] [place] [address] PCP - General Family Medicine 07/14/24 documented as of this encounter
--- OUTSIDE RECORDS SUMMARY | 2025-10-06 16:56 | XMS_ITS | Encounter Summary ---
Author Organization [employer] Address [address] [facility] 7t [place] [address] Care Team Providers Care Driver Utility Worker Name Role Phone An Ngoc FACILITIES MAINTENANCE TECHNICIAN Primary Care Provider [phone] Annette Nicole NP Primary Care Provider [phone] Reason for Visit * Reason Comments Med Refill Encounter Details Date Type Department Care Team (Late st Contact Info) Description 01/01/2023 Refill [facility] [address] [place] [address] Marleni Parkinson MD [address] [place] [address] Osteoarthritis of both knees, unspecified osteoarthritis type Social History Tobacco Use Types Packs/Day Years [...] suspected to have Coronavirus/COVID-19? No / Unsure 12/13/2022 8:38 AM EST documented as of this encounter Miscellaneous Notes * Telephone Encounter - JENNA Smith - 01/01/2023 3:58 PM EST Approving, but needs appt for additional refills. documented in this encounter Plan of Treatment Not on file documented as of this encounter Visit Diagnoses Diagnosis Osteoarthritis of both knees, unspecified osteoarthritis type documented in this encounter Care Teams Driver Utility Worker Relationship Specialty Start Date End Date Ngoc Nolan FNP [address] [place] [address] PCP - General Family Medicine 08/17/22 07/13/24 Annette Nicole NP [address] [place] [address] PCP - General Family Medicine 07/14/24 documented as of this encounter
--- OUTSIDE RECORDS SUMMARY | 2025-10-06 16:56 | XMS_ITS | Encounter Summary ---
Author Organization [employer] Address [address] [facility] [address] [place] [address] Care Team Providers Care Hoop Rolls Operator Name Role Phone Ngoc Nolan Primary Care Provider [phone] Annette Nicole FURNACE CHARGER Primary Care Provider [phone] Encounter Details Date Type Department Care Team (Late st Contact Info) Description 11/01/2022 Orders Only [facility] [address] [place] [address] Bailee Corona LPN Social History Tobacco Use Types Packs/Day Years Used Date Smoking Tobacco: Never Assessed Comments Unknown Sex and Gender Information Value [...] on filedocumented in this encounter Care Teams Hoop Rolls Operator Relationship Specialty Start Date End Date Ngoc Nolan FNP [address] [place] [address] [id number] PCP - General Family Medicine 08/17/22 07/13/24 Annette Nicole NP [address] [place] [address] PCP - General Family Medicine 07/14/24 documented as of this encounter
--- OUTSIDE RECORDS SUMMARY | 2025-10-06 16:56 | XMS_ITS | Encounter Summary ---
Author Organization [employer] Address [address] [facility] [address] [place] [address] Care Team Providers Care Seating And Mobility Technologist Name Role Phone Annette Nicole NP Primary Care Provider [phone] Reason for Visit * Reason Onset Date Comments Chart prep 10/04/2025 Encounter Details Date Type Department Care Team ([facility] st Contact Info) Description 10/04/2025 Telephone [facility] [address] [place] [address] Evelia Granado FNP [address] [place] [address] Chart prep Social History Tobacco Use Types Packs/Day Years [...] AM EDT documented as of this encounter Miscellaneous Notes * Telephone Encounter - Lyssa Goode MA - 10/04/2025 9:38 AM EST Chart Prep Labs: not applicable Images: not applicable Referrals: not applicable Vaccines due: Covid, Tdap, RSV, and Zoster Screenings: colonoscopy, mammogram, foot exam, and Lipid panel, Hep C. Overdue care gaps: A1c, Glucose, SBIRT, PHQ-9, YESIKA-7, and Tobacco documented in this encounter Plan of Treatment Not on file documented as of this encounter Visit Diagnoses Not on filedocumented in this encounter Additional Health Concerns Assessment Noted Time PHQ-9 Depression Total Score: 0 03/02/20 9:32 AM EDT documented as of this encounter Care Teams Seating And Mobility Technologist Relationship Specialty Start Date End Date Annette Nicole NP [address] [place] [address] PCP - General Family Medicine 07/14/24 documented as of this encounter
--- OUTSIDE RECORDS SUMMARY | 2025-10-06 16:56 | XMS_ITS | Encounter Summary ---
Author Organization [email or web address] Address [address] [facility] 7[address] [place] [address] Care Team Providers Care Hide Inspector And Sorter Name Role Phone Ngoc Nolan Primary Care Provider [phone] Annette Nicole NP Primary Care Provider [phone] Encounter Details Date Type Department Care Team (Late st Contact Info) Description 02/01/2023 Orders Only [facility] [address] [place] [address] Nadya Jiménez LPN Social History Tobacco Use [...] on filedocumented in this encounter Care Teams Hide Inspector And Sorter Relationship Specialty Start Date End Date Ngoc Nolan FNP [address] [place] [address] PCP - General Family Medicine 08/17/22 07/13/24 Annette Nicole NP [address] [place] [address] PCP - General Family Medicine 07/14/24 documented as of this encounter
--- OUTSIDE RECORDS SUMMARY | 2025-10-06 16:56 | XMS_ITS | Encounter Summary ---
Author Organization [employer] Address [address] [facility] [address] [place] [address] Care Team Providers Care Psychiatry Adult Physician Name Role Phone Ngoc Nolan Primary Care Provider [phone] Annette Nicole NP Primary Care Provider [phone] Reason for Visit * Reason Comments Med Refill Encounter Details Date Type Department Care Team (Late st Contact Info) Description 08/04/2023 Refill [facility] [address] [place] [address] Raiza Clark FNP Social History Tobacco Use Types Packs/Day Years [...] documented as of this encounter Care Teams Psychiatry Adult Physician Relationship Specialty Start Date End Date Ngoc Nolan FNP [address] [place] [address] PCP - General Family Medicine 10/7/22 9/2/24 Annette Nicole NP [address] [place] [id number] PCP - General Family Medicine 07/14/24 documented as of this encounter
--- OUTSIDE RECORDS SUMMARY | 2025-10-06 16:56 | XMS_ITS | Encounter Summary ---
Author Organization [employer] Address [address] [facility] [address] [place] [address] Care Team Providers Care Auto Design Checker Name Role Phone Ngoc Nolan Primary Care Provider [phone] Annette Nicole NP Primary Care Provider [phone] Encounter Details Date Type Department Care Team (Late st Contact Info) Description 01/17/2023 Orders Only [facility] [address] [place] [address] Nadya Jiménez LPN Social History Tobacco Use [...] on filedocumented in this encounter Care Teams Auto Design Checker Relationship Specialty Start Date End Date Ngoc Nolan FNP [address] [place] [address] PCP - General Family Medicine 08/17/22 07/13/24 Annette Nicole NP [address] [place] [address] PCP - General Family Medicine 07/14/24 documented as of this encounter
--- OUTSIDE RECORDS SUMMARY | 2025-10-06 16:57 | XMS_ITS | Clinical Summary ---
Author Organization [employer] Address [address] [place] [address] Care Team Providers Care Boring Machine Feeder Name Role Phone Annette Nicole NP Primary Care Provider [phone] Allergies Active Allergy Reactions Criticality Noted Date Comments Soren Inhibitors Unknown 10/27/2010 Hydrochlorothiazide Rash Low 10/27/2010 Penicillins Swelling 10/27/2010 Medications TRUEplus Lancets 33G miscIndications:T ype 2 diabetes mellitus with diabetic microalbuminuria, without long-term current use of insulin (HCC) USE DIRECTED TO TEST BLOOD SUGAR THREE TIMES DAILY 100 each 025 Active glucose blood (FREESTYLE LITE) test stripIndications: Type 2 diabetes mellitus with diabetic microalbuminuria, without long-term current use of insulin (HCC) USE DIRECTED TO TEST BLOOD SUGAR THREE TIMES DAILY 100 each 025 Active Blood Pressure Monitoring (Blood Pressure Cuff) misc 1 kit if needed each day (blood pressure). 1 each 025 Active fluticasone (Flonase) 50 MCG/ACT nasal spray INHALE 1 SPRAY IN EACH NOSTRIL TWICE DAILY 48 g 025 Active docusate sodium (Colace) 100 MG capsule TAKE 1 CAPSULE BY MOUTH TWICE DAILY 180 capsule 1 025 Active omega-3 acid ethyl esters (Lovaza) 1 g capsule TAKE 1 CAPSULE BY MOUTH TWICE DAILY IN THE MORNING AND IN THE EVENING 180 capsule 1 025 Active Ferrous Sulfate (iron) 325 (65 Fe) MG tablet TAKE 1 TABLET BY MOUTH TWICE DAILY IN THE MORNING AND IN THE EVENING 180 tablet 1 025 Active Aspirin Low Dose 81 MG EC tablet TAKE 1 TABLET BY MOUTH EVERY MORNING 90 tablet 1 025 Active rosuvastatin (Crestor) 20 MG tablet TAKE 1 TABLET BY MOUTH EVERY EVENING 90 tablet 1 025 Active omeprazole (PriLOSEC) [address] capsuleIndication s:Osteoarthritis of both knees, unspecified osteoarthritis type TAKE 1 CAPSULE BY MOUTH EVERY MORNING BEFORE BREAKFAST 90 capsule 1 025 Active Calcium + Vitamin D3 600-5 MG-MCG tablet TAKE 1 TABLET BY MOUTH TWICE DAILY IN THE MORNING AND IN THE EVENING 180 tablet 1 025 Active metFORMIN XR (Glucophage-XR) 500 MG 24 hr tablet TAKE 1 TABLET BY MOUTH EVERY MORNING 90 tablet 1 025 Active amLODIPine (Norvasc) 10 MG tablet TAKE 1 TABLET BY MOUTH EVERY MORNING 90 tablet 1 025 Active Multiple Vitamin (Multivitamin) tabletIndications :Primary osteoarthritis of both knees TAKE 1 TABLET BY MOUTH EVERY MORNING WITH FOOD 90 tablet 1 025 Active Acetaminophen Extra Strength 500 MG tabletIndications :Osteoarthritis of both knees, unspecified osteoarthritis type Take 1 tablet (500 mg) by mouth every 8 (eight) hours if needed (Take for pain as needed). 90 tablet 1 10/06/20 25 2:18 PM EST Active Diclofenac Sodium 1 % gelIndications:Os teoarthritis of both knees, unspecified osteoarthritis type Apply 1 Application topically 3 times daily. 300 g 1 Active ciclopirox (Penlac) 8 % solution Apply topically at bedtime. 6 mL 1 10/06/20 2:18 PM EST 025 Active Multiple Vitamin (Multivitamin) tabletIndications :Primary osteoarthritis of both knees TAKE 1 TABLET BY MOUTH EVERY MORNING WITH FOOD 90 tablet 1 025 2024 Discontinued Acetaminophen Extra Strength 500 MG tabletIndications :Osteoarthritis of both knees, unspecified osteoarthritis type TAKE 1 TABLET BY MOUTH EVERY 8 HOURS NEEDED FOR PAIN 90 tablet 1 025 2024 Discontinued(R eorder (will not trigger notification to Pharmacy)) Diclofenac Sodium 1 % gelIndications:Os teoarthritis of both knees, unspecified osteoarthritis type APPLY 2 GRAMS TOPICALLY TO AFFECTED AREA(S) THREE TIMES DAILY IN THE MORNING, AT NOON, AND AT BEDTIME NEEDED FOR PAIN 300 g 1 025 2024 Discontinued(R eorder (will not trigger notification to Pharmacy)) Active Problems Problem Noted Date Diagnosed Date Murmur 02/08/2025 Assessment & Plan (02/08/2025 6:44 PM EDT): No recent echo on file, ordered Dietary counseling 02/08/2025 Assessment & Plan (02/08/2025 6:46 PM EDT): Dietary Recommendations: Fruits, vegetables, whole grains, protein foods, and fat-free or low-fat dairy products are healthy choices. Eat different types of protein foods in your diet. This can include seafood, lean meats, poultry, beans, peas, lentils, nuts, seeds, soy products, and eggs. Limit foods and beverages higher in added sugars, saturated fat, and sodium. Exercise Recommendations: At least 150 minutes of moderate-intensity physical activity per week, or an equivalent combination of moderate- and vigorous-intensity activity Exercise counseling 02/08/2025 Bilateral primary osteoarthritis of knee Assessment & Plan (02/08/2025 6:45 PM EDT): Referral to ortho for injections if pt is candidate Knee pain, left 08/27/2024 Neuropathy 08/27/2024 Varicose veins of both lower extremities Obstructive sleep apnea 08/27/2024 Diabetes mellitus 08/27/2024 Encounter for screening for malignant neoplasm o f colon 11/01/2023 11/01/2023 History of adenomatous polyp of colon 11/01/2023 11/01/2023 Long-term current use of nahed g therapy for attention deficit hyperactivity disorder (ADHD) 05/28/2023 Osteoarthritis of both knees 12/13/2022 Assessment & Plan (09/10/2024 4:47 PM EDT): Interfering with ability to exercise, trial AM tylenol Referral to ortho Assessment & Plan (12/13/2022 9:06 AM EST): Xrays ordered. Tylenol given. Referral to orthopedics. 12/13/22 Pain in buttock 03/30/2019 Obesity (BMI 30-39.9) 10/23/2018 Supraventricular tachycardia 04/14/2018 Hypercalcemia 11/21/2015 Type 2 diabetes mellitus 11/21/2015 Assessment & Plan (02/08/2025 6:46 PM EDT): Excellent control today Hgb A1c at Lab Results Component Value Date HGBA1C 5.6 02/08/2025 Assessment & Plan (09/10/2024 4:48 PM EDT): Lab Results Component Value Date HGBA1C 5.5 09/01/2024 Continue current regimen Microalbuminuria 09/27/2015 Anemia 05/23/2015 Aortic valve disorder 02/07/2015 Primary osteoarthritis of left knee 04/28/2013 Tubular adenoma of colon 03/12/2013 Asthma 03/11/2013 Gastroesophageal reflux disease 03/11/2013 Hyperlipidemia 03/11/2013 Hypertension 03/11/2013 Assessment & Plan (02/08/2025 6:45 PM EDT): Initially above goal today, improved on repeat bp measurement Home bp cuff rx Follow up in 4-6 weeks Assessment & Plan (09/10/2024 4:47 PM EDT): Above goal of <140/<90 today Continue amlodipine 10 mg Home bp cuff prescribed If elevated Return to clinic Obstructive sleep apnea syndrome 06/16/2012 Encounters Date Type Department Care Team Description 10/05/2025 10:30 AM EST Office Visit [facility] [address] [place] [phone] Evelia Granado FNP Mixed hyperlipidemia (Primary Dx); Type 2 diabetes mellitus with other diabetic kidney complication, without long-term current use of insulin (HCC); Osteoarthritis of both knees, unspecified osteoarthritis type; Encounter for immunization 10/05/2025 Travel 10/04/2025 Telephone [facility] [address] [place] [address] Evelia Granado FNP Chart prep 09/28/2025 Patient Outreach [facility] [address] [place] [address] Annette Nicole, JOSE Pre-visit Planning (SDOH negative, Tobacco screening negative. ) 09/13/2025 Refill [facility] [address] [place] [address] Annette Nicole, FORM PRESSER Primary osteoarthritis of both knees 09/04/2025 Refill [facility] [address] [place] [address] Annette Nicole, FORM PRESSER Osteoarthritis of both knees, unspecified osteoarthritis type 08/17/2025 Refill [facility] [address] [place] [address] Annette Nicole, FORM PRESSER Osteoarthritis of both knees, unspecified osteoarthritis type 07/24/2025 Refill [facility] [address] [place] [address] Annette Nicole, FORM PRESSER Osteoarthritis of both knees, unspecified osteoarthritis type from Last 3 Months Immunizations Immunization Administration Dates Next Due Hep B, adult 08/20/2007,02/14/2007,12/29/2004 Influenza Injectable Quadriv alant Preservative Free IIV4 MDCK 09/08/2021 Influenza injectable quadriv alent IIV4 with preservative 08/14/2017,11/02/2016,08/23/2015 Influenza injectable quadriv alent preservative free 09/14/2023,09/06/2020,08/20/2019,10/23 Influenza, High Dose Seasona l, Preservative Free 09/23/2024 Influenza, IIV3, injectable 08/06/2014, 0 Influenza, Split (incl. nate fied surface antigen) 08/07/2013 Influenza, trivalent, adjuvanted 08/09/2025 Pfizer Covid-19 Vaccine 12+ 09/23/2024 Pneumococcal Conjugate PCV 20 09/23/2024 Pneumococcal Polysaccharide PPSV23 06/21/2008 TD (adult), 2 Lf tetanus tox oid, preservative free, adsorbed 12/29/2004 Tdap 10/05/2025,02/07/2015 Zoster, Recombinant 12/14/2024 Zoster, live 08/22/2017 Family History Medical History Relation Name Comments Prostate cancer Brother Diabetes type II Father Hypertension Father Relation Name Status Comments Brother Father Social History Tobacco Use Types Packs/Day Years [...] not to disclose 2021 10:14 AM EDT Last Filed Vital Signs Vital Sign Reading [...] Mass Index 27.16 10/05/2025 10:06 AM EST Plan of Treatment Health Maintenance Due Date Last Done Comments CT Colonography 1956 FIT DNA/Cologuard 1956 FIT 1956 FOBT 1956 Sigmoidoscopy 1956 Diabetes: Foot Exam 1966 Hepatitis C Screening 1974 RSV Patients and Patients Aged 60 years or older (1 - Risk 50-74 years 1-dose series) 2006 Colonoscopy 02/23/2019 02/23/2014 Colorectal Cancer Screening 02/23/2019 Mammogram 11/15/2022 11/15/2020, 03/2021, 10/09/2019, Additional history exists Zoster Vaccines (3 of 3) 02/08/2025 12/14/2024, 08/11 COVID-19 Vaccine ( season) 2025 09/23/2024, 05/25/2022, 10/20/2021, Additional history exists Diabetes: Hemoglobin A1C 04/04/2026 025, 02/08/2025, 09/01/2024, Additional history exists SDOH Screening 09/28/2026 09/28/2025 Alcohol/Substance Use Screening 10/05/2026 10/05/2025 Depression Screening 10/05/2026 10/05/2025, 10/05/20 Tobacco Screening 10/05/2026 10/05/2025 Lipid Panel 10/06/2026 10/06/2025, 08/29/2020 Eye Exam 06/10/2027 06/10/2025 DTaP/Tdap/Td Vaccines (3 - Td or Tdap) 10/05/2035 10/05/2025, 02/07/2015, 12/29/2004 Hepatitis B Vaccines Completed 08/20/2007, 02/14/2007, 12/29/2004 Pneumococcal Vaccine: 50+ Years Completed 09/23/2024, 06/21/2008 Influenza Vaccine Completed 08/09/2025, , 09/14/2023, Additional history exists HIB Vaccines Aged Out No longer eligi ble based on patient's age to complete this topic HPV Vaccines Aged Out No longer eligi ble based on patient's age to complete this topic Hepatitis A Vaccines Aged Out No long er eligible based on patient's age to complete this topic IPV Vaccines Aged Out No longer eligi ble based on patient's age to complete this topic Meningococcal B Vaccine Aged Out No l onger eligible based on patient's age to complete this topic Meningococcal Vaccine Aged Out No di agustín eligible based on patient's age to complete this topic RSV under 20 months Aged Out No longe r eligible based on patient's age to complete this topic Rotavirus Vaccines Aged Out No longer eligible based on patient's age to complete this topic Procedures Procedure Name Priority Date/Time Associated Diagnosis Comments COMPREHENSIVE METABOLIC PANEL Routine 10/06/2025 2:03 PM EST Mixed hyperlipidemia LIPID PANEL, STANDARD Routine 10/06/2025 2:03 PM EST Mixed hyperlipidemia POCT GLUCOSE Routine 10/05/2025 10:05 AM EST Type 2 diabetes mellitus with other diabetic kidney complication, without long-term current use of insulin (HCC) POCT GLYCATED HEMOGLOBIN, TOTAL Routine 10/05/2025 10:05 AM EST Type 2 diabetes mellitus with other diabetic kidney complication, without long-term current use of insulin (HCC) AMB REFERRAL TO OPTOMETRY Routine 06/10/2025 Type 2 diabetes mellitus with hyperosmolarity without coma, without long-term current use of insulin ([facility]/HCC) MAMMOGRAM GENERIC Routine 11/15/2020 8:5 8 AM EST HM COLONOSCOPY Routine 02/23/2014 9:58 AM EDT from Last 3 Months or Most Recently Relevant to Health Maintenance Results * (ABNORMAL) Lipid Panel, Standard (10/06/2025 2:03 PM EST) Triglycerides 305(H) <150 mg/dL [facility] Comment:Desirable Triglyceri de: less than 150 mg/dLBorderline High Triglyceride 150-199 mg/dLHigh Triglyceride: 200-499 mg/dLVery High Triglyceride: greater than or equal to 5OO mg/dL Cholesterol 261(H) <200 mg/dL [facility] Comment:Desirable Cholestero l: less than 200 mg/dLBorderline High Cholesterol: 200-239 mg/dLHigh Cholesterol: greater than 239 mg/dL LDL Cholesterol Calculated 162(H) <100 mg/dL [facility] Comment:Desirable LDL: less than 100 mg/dLNear Optimal/Above Optimal LDL: 110- 129 mg/dLBorderline High LDL: 130-159 mg/dLHigh LDL: 160-189 mg/dLVery High LDL: greater than or equal to 190 mg/dL HDL Cholesterol 38(L) >40 mg/dL [facility] Comment:Desirable HDL: great er than 40 mg/dL Note: This HDL assay may give artificially low results in patients with liver disease. Blood Venous blood specimen / Unknown 10/06/2025 2:03 PM EST 10/06/2025 4:22 PM EST us Evelia Granado [employer] [facility] BLOOD ORDERABLES Final Res ult [facility] [address] [place] [phone] * (ABNORMAL) Comprehensive Metabolic Panel (10/06/2025 2:03 PM EST) Sodium 142 135 - 145 mmol/L [facility] Potassium 3.8 3.3 - 5.1 mmol/L [facility] Chloride 105 96 - 108 mmol/L [facility] Carbon Dioxide 29 22 - 29 mmol/L [facility] Anion Gap 12 12 - 20 [facility] Urea Nitrogen (BUN) 21(H) 9 - 16 mg/dL [facility] Creatinine, Serum 0.94 0.5 - 1.4 mg/dL [facility] Estimated Glomerular Filt Rate 59 [facility] Comment:Chronic Kidney Disea se: Estimated GFR < 60 mL/min/[id number] Kidney Disease: Estimated GFR < 15 mL/min/1.73m2 Glucose 94 60 - 115 mg/dL [facility] Calcium 9.9 8.4 - 10.2 mg/dL [facility] Bilirubin, Total 0.1 0.0 - 1.0 mg/dL [facility] Aspartate Amino Transferase 23 5 - 31 U/L [facility] Alanine Aminotransferase 12 0 - 31 U/L [facility] Total Protein 7.3 6.5 - 8.0 g/dL [facility] Albumin Level 4.3 3.5 - 5.0 g/dL [facility] Alkaline Phosphatase 122(H) 39 - 117 U/L [facility] Blood Venous blood specimen / Unknown 10/06/2025 2:03 PM EST 10/06/2025 4:22 PM EST us Evelia [facility] BLOOD ORDERABLES Final Res ult [facility] [address] [place] [phone] * POCT Hgb A1c (10/05/2025 10:05 AM EST) Hemoglobin A1C 5.6 4.0 - 5.7 % QC Media Lot # [id number] Lot# Expiration Date [id number] Blood 10/05/2025 10:0 5 AM EST us Evelia Donnao [employer] POINT OF CARE TEST ENTER/EDIT ORDERABLES Final Result * POCT Glucose (10/05/2025 10:05 AM EST) Glucose Blood, POC 92 60 - 200 mg/dL Comment:RANDOM QC Media Lot # [id number] Lot# Expiration Date [id number] Blood Capillary blood specimen / Unknown 10/05/2025 10:05 AM EST Result [facility] Evelia Thompsono [employer] POINT OF CARE TEST ENTER/EDIT ORDERABLES Final Result * Referral to Optometry (06/10/2025) Ngoc Nolan [employer] OUTPATIENT REFERRAL ORDERABLES Final Result * Mammography Report 1 (11/15/2020 8:58 AM EST) Anatomical Region Laterality Modality Breast Bilateral Mammography 11/15/2020 8:58 AM EST Narrative 11/16/2021 12:36 AM EST Refer to the Notes tab for result details [facility] Procedure: Mammography Report 1 Procedure Note Provider, MD Esequiel - 02/02/2023 Refer to the Notes tab for result details [facility] Procedure: Mammography Report 1 Stacy Lake MD IMG BI PROCEDURES Final Result * Colonoscopy (02/23/2014 9:58 AM EDT) Colonoscopy Normal Normal Narrative Nila Cole - 02/23/2014 9:58 AM EDT Recommended 5 year follow up per provider notes path result were not available for upload Esequiel Provider HEALTH MAINTENANCE Edited Result - Final from Last 3 Months or Most Recently Relevant to Health Maintenance Insurance [facility] INTERMEDIATE OPTIONS (O D-SNP) TIKA RICKS [id number] Care Teams Boring Machine Feeder Relationship Specialty Start Date End Date Annette Nicole NP [address] [place] [phone] PCP - General Family Medicine 07/14/24
[2025-10-07 05:24] LABS: ~HepC Num1 0.13 S/CO (0.00-0.79); ~Hepatitis C Antibody Nonreactive (Nonreactive)
== END 2025-10-06 13:55 | disposition home or self-care (01) ==
LOC: HO.HHCL 13:54
PROVIDERS: PCP Nurse Practitioner Family; Visit Provider Nurse Practitioner Family
DX: E78.2 Mixed hyperlipidemia (principal); Z11.59 Encounter for screening for other viral diseases
CPT/HCPCS: 36415; 80053; 80061; 86803